=== PATIENT | female | born 1935 | race Caucasian/White ===

== ENCOUNTER 2017-10-05 10:22 | Inpatient (IN) | payer MEDICARE ==
[2017-10-05] MEDS ORDERED: SODIUM CHLORIDE 0.9% 500 ML IV STA (10:37)
[2017-10-05] MEDS ORDERED: SODIUM CHLORIDE 0.9% 1,000 ML IV STA ×2 (10:37)
[2017-10-05] MEDS ORDERED: ACETAMINOPHEN IV (For NPO) 1,000 MG in EMPTY BAG 1 BAG IVPB STA (10:39)
[2017-10-05 10:44] LABS: Glucose,Whole Blood 190 mg/dL (75-99)
--- NOTE | 2017-10-05 11:01 | ED ---
General Adult HPI - General Chief complaint: Fall Stated complaint: Altered Mental Time Seen by Provider: 10/05/17 10:26 Source: patient, RN notes reviewed, old records reviewed Mode of arrival: EMS Limitations: no limitations - History of Present Illness Initial comments: This is an 82-year-old female to the ER status post fall, found down. Patient' s poor strain history obtained from EMS. Prostatic patient was found down leg headfirst on the ground when they came to evaluate her this morning. - Related Data Home Medications Medication Instructions Recorded Confirmed Aspirin EC [Ecotrin Low Dose] 81 mg PO DAILY@0800 03/14/16 10/05/17 Levothyroxine Sodium [Synthroid] 50 mcg PO DAILY 03/14/16 10/05/17 Clobetasol Propionate [Temovate 1 applic TOPICAL BID 07/08/17 10/05/17 0.05% Cream] Docusate [Colace] 200 mg PO HS 07/08/17 10/05/17 Metoclopramide [Reglan] 20 mg PO AC-BID 07/08/17 10/05/17 PARoxetine [Paxil] 20 mg PO DAILY 07/08/17 10/05/17 Sennosides [Senna] 17.2 mg PO HS 07/08/17 10/05/17 ALPRAZolam [Xanax] 0.125 mg PO DAILY@0800 10/05/17 10/05/17 Benzocain/Benzalkonm Oral Gel 1 applic PO TID PRN 10/05/17 10/05/17 [Orajel Anesthetic Max Strength] Magnesium Hydroxide [Milk of 2,400 mg PO HS PRN 10/05/17 10/05/17 Magnesia] Ondansetron [Zofran ODT] 4 mg PO Q8HR PRN 10/05/17 10/05/17 Polyethylene Glycol 3350 [Miralax] 17 gm PO Q48H 10/05/17 10/05/17 Sennosides [Senna] 8.6 mg PO HS PRN 10/05/17 10/05/17 Allergies Allergy/AdvReac Type Severity Reaction Status Date / Time gluten Allergy Unknown Verified 10/05/17 10:47 Review of Systems ROS Statement: Those systems with pertinent positive or pertinent negative responses have been documented in the HPI. ROS Other: All systems not noted in ROS Statement are negative. Past Medical History Past Medical History: GERD/Reflux, Thyroid Disorder History of Any Multi-Drug Resistant Organisms: None Reported Past Surgical History: Joint Replacement Past Psychological History: Anxiety Smoking Status: Never smoker Past Alcohol Use History: None Reported Past Drug Use History: None Reported General Exam Limitations: no limitations General appearance: alert, in no apparent distress Head exam: Present: atraumatic, normocephalic, normal inspection Eye exam: Present: normal appearance, PERRL, EOMI. Absent: scleral icterus, conjunctival injection, periorbital swelling ENT exam: Present: normal exam, mucous membranes moist Neck exam: Present: normal inspection. Absent: tenderness, meningismus, lymphadenopathy Respiratory exam: Present: normal lung sounds bilaterally. Absent: respiratory distress, wheezes, rales, rhonchi, stridor Cardiovascular Exam: Present: normal rhythm, tachycardia, normal heart sounds. Absent: systolic murmur, diastolic murmur, rubs, gallop, clicks GI/Abdominal exam: Present: soft, normal bowel sounds. Absent: distended, tenderness, guarding, rebound, rigid Extremities exam: Present: normal inspection, full ROM, normal capillary refill. Absent: tenderness, pedal edema, joint swelling, calf tenderness Back exam: Present: normal inspection Neurological exam: Present: alert, oriented X3, CN II-XII intact Psychiatric exam: Present: normal affect, normal mood Skin exam: Present: warm, dry, intact, normal color. Absent: rash Course Vital Signs 10/05/17 10/05/17 10/05/17 10:41 10:46 11:46 Pulse Rate 113 H 99 84 Respiratory 16 15 16 Rate Blood Pressure 119/69 119/69 117/59 O2 Sat by Pulse 96 99 100 Oximetry 10/05/17 12:00 Pulse Rate 87 Respiratory 16 Rate Blood Pressure O2 Sat by Pulse 100 Oximetry - Reevaluation(s) Reevaluation #1: 10/05/17 12:27 Patient showing no significant clinical improvement Reevaluation #2: 10/05/17 14:07 Patient remains without significant mental state or mental status improvement EKG Findings - EKG Comments: EKG Findings:: EKG shows sinus tachycardia rate 103, [place] 126, QRS 72, QTc to 12 Medical Decision Making - Medical Decision Making 82 female the ER for evaluation. Patient presents ER for evaluation regarding found down. Patient still not speaking appropriately. Patient will be admitted for IV resuscitation, continued monitoring of altered mental state - Lab Data Result diagrams: 10/05/17 11:22 10/05/17 11:22 Lab Results 10/05/17 10/05/17 10/05/17 Range/Units 10:41 11:22 11:22 WBC 10.5 (3.8-10.6) k/uL RBC 2.51 L (3.80-5.40) m/uL Hgb 7.5 L (11.4-16.0) gm/dL Hct 22.4 L (34.0-46.0) % MCV 89.5 (80.0-100.0) fL MCH 30.1 (25.0-35.0) pg MCHC 33.6 (31.0-37.0) g/dL RDW 13.1 (11.5-15.5) % Plt Count 287 (150-450) k/uL Neutrophils % 91 % Lymphocytes % 4 % Monocytes % 4 % Eosinophils % 0 % Basophils % 0 % Neutrophils # 9.6 H (1.3-7.7) k/uL Lymphocytes # 0.5 L (1.0-4.8) k/uL Monocytes # 0.4 (0-1.0) k/uL Eosinophils # 0.0 (0-0.7) k/uL Basophils # 0.0 (0-0.2) k/uL PT (9.0-12.0) sec INR (<1.2) APTT (22.0-30.0) sec Sodium (137-145) mmol/L Potassium (3.5-5.1) mmol/L Chloride (98-107) mmol/L Carbon Dioxide (22-30) mmol/L Anion Gap mmol/L BUN (7-17) mg/dL Creatinine (0.52-1.04) mg/dL Est GFR (CKD-EPI)AfAm (>60 ml/min/1.73 sqM) Est GFR (CKD-EPI)NonAf (>60 ml/min/1.73 sqM) Glucose (74-99) mg/dL POC Glucose (mg/dL) 190 H (75-99) mg/dL POC Glu Recoating Machine Operator ID McDaid, Lexy Plasma Lactic Acid Darío (0.7-2.0) mmol/L Calcium (8.4-10.2) mg/dL Phosphorus (2.5-4.5) mg/dL Magnesium (1.6-2.3) mg/dL Total Bilirubin (0.2-1.3) mg/dL AST (14-36) U/L ALT (9-52) U/L Alkaline Phosphatase (38-126) U/L Total Creatine Kinase 567 H (30-135) U/L CK-MB (CK-2) 7.8 H* (0.0-2.4) ng/mL CK-MB (CK-2) Rel Index 1.4 Troponin I <0.012 (0.000-0.034) ng/mL Total Protein (6.3-8.2) g/dL Albumin (3.5-5.0) g/dL 10/05/17 10/05/17 10/05/17 Range/Units 11:22 11:22 11:22 WBC (3.8-10.6) k/uL RBC (3.80-5.40) m/uL Hgb (11.4-16.0) gm/dL Hct (34.0-46.0) % MCV (80.0-100.0) fL MCH (25.0-35.0) pg MCHC (31.0-37.0) g/dL RDW (11.5-15.5) % Plt Count (150-450) k/uL Neutrophils % % Lymphocytes % % Monocytes % % Eosinophils % % Basophils % % Neutrophils # (1.3-7.7) k/uL Lymphocytes # (1.0-4.8) k/uL Monocytes # (0-1.0) k/uL Eosinophils # (0-0.7) k/uL Basophils # (0-0.2) k/uL PT 11.0 (9.0-12.0) sec INR 1.1 (<1.2) APTT 24.8 (22.0-30.0) sec Sodium 144 (137-145) mmol/L Potassium 3.1 L (3.5-5.1) mmol/L Chloride 119 H (98-107) mmol/L Carbon Dioxide 18 L (22-30) mmol/L Anion Gap 7 mmol/L BUN 29 H (7-17) mg/dL Creatinine 0.55 (0.52-1.04) mg/dL Est GFR (CKD-EPI)AfAm >90 (>60 ml/min/1.73 sqM) Est GFR (CKD-EPI)NonAf 89 (>60 ml/min/1.73 sqM) Glucose 124 H (74-99) mg/dL POC Glucose (mg/dL) (75-99) mg/dL POC Glu Recoating Machine Operator ID Plasma Lactic Acid Darío 2.6 H* (0.7-2.0) mmol/L Calcium 6.6 L (8.4-10.2) mg/dL Phosphorus 2.6 (2.5-4.5) mg/dL Magnesium 1.4 L (1.6-2.3) mg/dL Total Bilirubin 0.2 (0.2-1.3) mg/dL AST 38 H (14-36) U/L ALT 43 (9-52) U/L Alkaline Phosphatase 42 (38-126) U/L Total Creatine Kinase (30-135) U/L CK-MB (CK-2) (0.0-2.4) ng/mL CK-MB (CK-2) Rel Index Troponin I (0.000-0.034) ng/mL Total Protein 4.3 L (6.3-8.2) g/dL Albumin 2.0 L (3.5-5.0) g/dL - Radiology Data Radiology results: report reviewed (CT brain C-spine patient was negative chest x-ray x-ray pelvis negative), image reviewed Disposition Clinical Impression: Fall, Weakness, Rhabdomyolysis, Altered mental state, Anemia, Dehydration Disposition: ADMITTED IP TO THIS HOSP Condition: Fair
[2017-10-05 11:40] LABS: Basophils % (A) 0 %; Eosinophils % (A) 0 %; HCT 22.4 % (34.0-46.0); HGB 7.5 gm/dL (11.4-16.0); Lymphocytes # (A) 0.5 k/uL (1.0-4.8); Lymphocytes % (A) 4 %; MCH 30.1 pg (25.0-35.0); MCHC 33.6 g/dL (31.0-37.0); MCV 89.5 fL (80.0-100.0); Mean Platelet Volume 8.8; Monocytes # (A) 0.4 k/uL (0-1.0); Monocytes % (A) 4 %; Neutrophils # (A) 9.6 k/uL (1.3-7.7); Neutrophils % (A) 91 %; Platelet Count 287 k/uL (150-450); RBC 2.51 m/uL (3.80-5.40); RDW 13.1 % (11.5-15.5); WBC 10.5 k/uL (3.8-10.6)
--- NOTE | 2017-10-05 11:43 | CT ---
EXAMINATION TYPE: CT brain phani freedman con DATE OF EXAM: 10/05/2017 COMPARISON: NONE HISTORY: 82-year-old female found on floor. Fall. Pain. CT DLP: 1016.3 mGycm Automated exposure control for dose reduction was used. Technique: Examination of the head was done in axial plane without intravenous contrast. Coronal and sagittal reconstructions performed. CT of the cervical spine was obtained in axial plane without intravenous injection of contrast mater ial. Coronal and sagittal reformatted images were obtained from the axial views for evaluation of f ractures, spinal alignment and canal. FINDINGS: Head: Some mild calvarial streak artifacts along the frontal convexities. Otherwise, there is no evidence o f acute intracranial hemorrhage, acute ischemic changes, mass, mass-effect, or extra-axial fluid col lection. There is no effacement of cerebral sulci or basal subarachnoid cisterns. There is no hydro cephalus. There is no midline shift. Swan-white matter distinction is preserved. Moderate generalized supratentorial volume loss. Patchy periventricular white matter hypodensities ramsay ggest changes of chronic small vessel ischemic disease. Benign basal ganglial calcifications. Paranasal sinuses and mastoid air cells well pneumatized. No calvarial fracture. Cervical spine: No craniocervical junction of the midbody, predental space widening, or prevertebral soft tissue swel ling. Normal alignment of the cervical spine. No acute fracture identified. Moderate to advanced disposition to degenerative change particularly from C4 through C7 levels. Disc osteophyte complexes mildly narrow the spinal canal suggests that C5-C6 and C6-C7. Hypertrophic facet and uncovertebral joint degenerative change with variable mild neuroforaminal narr owing in the mid to lower cervical spine. Sagittal and coronal reformatted images confirm above findings. COMBINED IMPRESSION: 1. No acute intracranial abnormality seen. Moderate atrophy and mild changes of chronic small vessel ischemic disease. 2. Moderate cervical spondylosis. No acute fracture or malalignment.
[2017-10-05 11:44] LABS: INR 1.1 (<1.2); Partial Thromboplastin Time 24.8 sec (22.0-30.0)
--- NOTE | 2017-10-05 11:46 | CT ---
EXAMINATION TYPE: CT facial bones wo con DATE OF EXAM: 10/05/2017 COMPARISON: NONE HISTORY: Patient poor historian. Patient found on floor. Fall. CT DLP: 520.3 mGycm Automated exposure control for dose reduction was used. TECHNIQUE: CT scan of the sinuses is performed without contrast, axial images are obtained, coronal r eformatted images are also reviewed. FINDINGS: The paranasal sinuses including the frontal, ethmoid, sphenoid, and maxillary sinuses bila terally are well-aerated with minimal mucosal thickening involving the maxillary sinuses.. The ostio meatal complex is patent bilaterally on the coronal images. Visualized portion of mastoid air cells show no abnormal opacification. The globes are intact bilate rally. There is a nasal septal deviation. Osseous structures intact. IMPRESSION: 1. No acute fracture.
[2017-10-05 11:47] LABS: ALT 43 U/L (9-52); AST 38 U/L (14-36); Alkaline Phosphatase 42 U/L (38-126); Anion Gap 7 mmol/L; Blood Urea Nitrogen 29 mg/dL (7-17); Calcium 6.6 mg/dL (8.4-10.2); Carbon Dioxide 18 mmol/L (22-30); Chloride 119 mmol/L (98-107); Glucose 124 mg/dL (74-99); Magnesium 1.4 mg/dL (1.6-2.3); Phosphorus 2.6 mg/dL (2.5-4.5); Potassium 3.1 mmol/L (3.5-5.1); Sodium 144 mmol/L (137-145); Total Bilirubin 0.2 mg/dL (0.2-1.3); Total Protein 4.3 g/dL (6.3-8.2)
[2017-10-05 11:57] LABS: Creatine Kinase 567 U/L (30-135)
[2017-10-05 12:10] LABS: Troponin I <0.012 ng/mL (0.000-0.034)
[2017-10-05 12:14] LABS: Creatine Kinase MB 7.8 ng/mL (0.0-2.4)
[2017-10-05 13:15] LABS: Appearance,Urine Clear (Clear); Bilirubin,Urine Negative (Negative); Blood,Urine Negative (Negative); Color,Urine Yellow; Glucose,Urine (UA) Negative (Negative); Ketones,Urine Negative (Negative); Leukocyte Esterase,Urine Negative (Negative); Nitrite,Urine Negative (Negative); PH, Urine 5.5 (5.0-8.0); Protein,Urine Trace (Negative); Specific Gravity,Urine 1.024 (1.001-1.035)
--- NOTE | 2017-10-05 14:37 | XR ---
EXAMINATION TYPE: XR chest 2V DATE OF EXAM: 10/05/2017 COMPARISON: NONE TECHNIQUE: PA and lateral views submitted. HISTORY: Weakness FINDINGS: The lungs are clear and there is no pneumothorax, pleural effusion, or focal pneumonia. Diffuse ost eopenia. Mild arthropathy of the AC joint. Atherosclerotic change aorta. IMPRESSION: 1. No acute process.
--- NOTE | 2017-10-05 14:38 | XR ---
EXAMINATION TYPE: XR knee complete bilateral DATE OF EXAM: 10/05/2017 COMPARISON: NONE HISTORY: Pain TECHNIQUE: Four views are submitted bilaterally. FINDINGS: Mild narrowing of the medial compartment of the knee joint bilaterally. No erosive changes. Mild diff use osteopenia. Osseous structures are intact. No acute fracture seen. IMPRESSION: 1. No acute fracture or dislocation.
--- NOTE | 2017-10-05 14:40 | XR ---
EXAMINATION TYPE: XR pelvis AP view DATE OF EXAM: 10/05/2017 COMPARISON: NONE HISTORY: Pain The osseous structures are intact and the joint spaces are preserved. No acute fracture is seen. Vi sualized bowel gas pattern is nonspecific. Postsurgical change right hip. Arthropathy of the left hi p. Degenerative change lower lumbar spine. IMPRESSION: 1. No acute fracture.
[2017-10-05] MEDS ORDERED: ONDANSETRON 4 MG/2 ML VIAL IVP PRN (15:12)
[2017-10-05] MEDS ORDERED: NALOXONE 0.4 MG/ML 1 ML VIAL IV PRN (15:12)
[2017-10-05] MEDS ORDERED: ONDANSETRON ODT 4 MG TAB PO PRN (15:16)
[2017-10-05] MEDS ORDERED: MAGNESIUM HYDROXIDE 2,400 MG/10 ML CUP PO PRN (15:16)
--- NOTE | 2017-10-05 15:23 | P.HPIM ---
History of Present Illness H&P Date: 10/05/17 Chief Complaint: Found down 82-year-old female who presented to the emergency department because she was found down by her independent living staff. No further history was provided. It is unclear how long the patient was down but it seemed like she fell. I tried to reach her next of kin contact but was unable to. Patient is currently not able to give any history, she is confused, she does not know where she is. She is just asking for water. Review of Systems Unobtainable Past Medical History Past Medical History: GERD/Reflux, Thyroid Disorder History of Any Multi-Drug Resistant Organisms: None Reported Past Surgical History: Joint Replacement Past Psychological History: Anxiety Smoking Status: Never smoker Past Alcohol Use History: None Reported Past Drug Use History: None Reported Medications and Allergies Home Medications Medication Instructions Recorded Confirmed Type Aspirin EC [Ecotrin Low Dose] 81 mg PO DAILY@0800 03/14/16 10/05/17 History Levothyroxine Sodium [Synthroid] 50 mcg PO DAILY 03/14/16 10/05/17 History Clobetasol Propionate [Temovate 1 applic TOPICAL BID 07/08/17 10/05/17 History 0.05% Cream] Docusate [Colace] 200 mg PO HS 07/08/17 10/05/17 History Metoclopramide [Reglan] 20 mg PO AC-BID 07/08/17 10/05/17 History PARoxetine [Paxil] 20 mg PO DAILY 07/08/17 10/05/17 History Sennosides [Senna] 17.2 mg PO HS 07/08/17 10/05/17 History ALPRAZolam [Xanax] 0.125 mg PO DAILY@0800 10/05/17 10/05/17 History Benzocain/Benzalkonm Oral Gel 1 applic PO TID PRN 10/05/17 10/05/17 History [Orajel Anesthetic Max Strength] Magnesium Hydroxide [Milk of 2,400 mg PO HS PRN 10/05/17 10/05/17 History Magnesia] Ondansetron [Zofran ODT] 4 mg PO Q8HR PRN 10/05/17 10/05/17 History Polyethylene Glycol 3350 [Miralax] 17 gm PO Q48H 10/05/17 10/05/17 History Sennosides [Senna] 8.6 mg PO HS PRN 10/05/17 10/05/17 History Allergies Allergy/AdvReac Type Severity Reaction Status Date / Time gluten Allergy Unknown Verified 10/05/17 10:47 Physical Exam Vitals: Vital Signs Pulse Resp BP Pulse Ox 10/05/17 14:35 90 118/63 100 10/05/17 13:35 84 110/60 100 10/05/17 13:05 94 126/65 100 10/05/17 12:35 84 117/59 100 10/05/17 12:00 87 16 100 10/05/17 11:46 84 16 117/59 100 10/05/17 10:46 99 15 119/69 99 10/05/17 10:41 113 H 16 119/69 96 Intake and Output 10/05/17 10/05/17 10/05/17 06:59 14:59 22:59 Other: Weight 56.699 kg Constitutional: No acute distress Eyes:Anicteric sclerae, moist conjunctiva, no lid-lag, PERRLA, ENMT: Very dry mucous membranes, oropharynx clear, no erythema, exudates Neck: Supple, FROM, no masses, or JVD, No carotid bruits, No thyromegaly Lungs: Clear to auscultation, Clear to percussion, Normal respiratory effort, no accessory muscle use Cardiovascular: Heart regular in rate and rhythm, No murmurs, gallops, or rubs, No peripheral edema Abdominal: Soft, Nontender, no guarding, rebound or rigidity, Normoactive bowel sounds, No hepatomegaly, No splenomegaly, No palpable mass Skin: Multiple bruises all over the skin especially on the face, the knees. Normal temperature, tone, texture, turgor, no induration, No subcutaneous nodules, No rash, lesions, No ulcers Extremities: No digital cyanosis, No clubbing, Pedal pulses intact and symmetrical, Radial pulses intact and symmetrical, No calf tenderness Psychiatric: Alert and oriented to self only Neuro: Moving all extremities, alert but disoriented. Results CBC & Chem 7: 10/05/17 11:22 10/05/17 11:22 Labs: Abnormal Lab Results - Last 24 Hours (Table) 10/05/17 10/05/17 10/05/17 Range/Units 10:41 11:22 11:22 RBC 2.51 L (3.80-5.40) m/uL Hgb 7.5 L (11.4-16.0) gm/dL Hct 22.4 L (34.0-46.0) % Neutrophils # 9.6 H (1.3-7.7) k/uL Lymphocytes # 0.5 L (1.0-4.8) k/uL Potassium (3.5-5.1) mmol/L Chloride (98-107) mmol/L Carbon Dioxide (22-30) mmol/L BUN (7-17) mg/dL Glucose (74-99) mg/dL POC Glucose (mg/dL) 190 H (75-99) mg/dL Plasma Lactic Acid Darío (0.7-2.0) mmol/L Calcium (8.4-10.2) mg/dL Magnesium (1.6-2.3) mg/dL AST (14-36) U/L Total Creatine Kinase 567 H (30-135) U/L CK-MB (CK-2) 7.8 H* (0.0-2.4) ng/mL Total Protein (6.3-8.2) g/dL Albumin (3.5-5.0) g/dL Urine Protein (Negative) 10/05/17 10/05/17 10/05/17 Range/Units 11:22 11:22 13:10 RBC (3.80-5.40) m/uL Hgb (11.4-16.0) gm/dL Hct (34.0-46.0) % Neutrophils # (1.3-7.7) k/uL Lymphocytes # (1.0-4.8) k/uL Potassium 3.1 L (3.5-5.1) mmol/L Chloride 119 H (98-107) mmol/L Carbon Dioxide 18 L (22-30) mmol/L BUN 29 H (7-17) mg/dL Glucose 124 H (74-99) mg/dL POC Glucose (mg/dL) (75-99) mg/dL Plasma Lactic Acid Darío 2.6 H* (0.7-2.0) mmol/L Calcium 6.6 L (8.4-10.2) mg/dL Magnesium 1.4 L (1.6-2.3) mg/dL AST 38 H (14-36) U/L Total Creatine Kinase (30-135) U/L CK-MB (CK-2) (0.0-2.4) ng/mL Total Protein 4.3 L (6.3-8.2) g/dL Albumin 2.0 L (3.5-5.0) g/dL Urine Protein Trace H (Negative) Assessment and Plan Plan: #1 Change in mental status/Acute encephalopathy/Fall: Unclear etiology Patient is definitely dehydrated, will treat with IV fluids. #2 New onset anemia: Unclear etiology, patient could be bleeding somewhere Recheck hemoglobin at 6 PM Monitor for any bleeding Transfuse packed red blood cells if necessary #3 Hypokalemia: Replace and follow in a.m. #4 Lactic acidosis: Chest x-ray and UA are reviewed, no evidence of infection Repeat lactic acid No indication for antibiotics at this point #5 Hypothyroidism/chronic constipation/anxiety: All stable Resume meds.
[2017-10-05] MEDS ORDERED: POTASSIUM CHLORIDE 10 MEQ in SODIUM CHLORIDE 0.9% 100 ML IVPB STA (15:26)
[2017-10-05] MEDS: SODIUM CHLORIDE 0.9% 1,000 ML IV SCH (15:53)
[2017-10-05] MEDS: ACETAMINOPHEN TAB 325 MG TAB PO PRN (16:14)
[2017-10-05] MEDS: MAGNESIUM SULFATE-D5W PMX 1 GM in DEXTROSE/WATER 1 100ML.BAG IVPB SCH ×2 (18:04→19:35)
[2017-10-05] MEDS: METOCLOPRAMIDE 10 MG TAB PO SCH (18:04)
[2017-10-05 18:49] LABS: Basophils % (A) 0 %; Eosinophils # (A) 0.1 k/uL (0-0.7); Eosinophils % (A) 1 %; HCT 24.3 % (34.0-46.0); HGB 8.3 gm/dL (11.4-16.0); Lymphocytes # (A) 1.5 k/uL (1.0-4.8); Lymphocytes % (A) 13 %; MCH 30.9 pg (25.0-35.0); MCHC 34.4 g/dL (31.0-37.0); MCV 89.9 fL (80.0-100.0); Mean Platelet Volume 8.2; Monocytes # (A) 0.7 k/uL (0-1.0); Monocytes % (A) 6 %; Neutrophils # (A) 8.9 k/uL (1.3-7.7); Neutrophils % (A) 78 %; Platelet Count 322 k/uL (150-450); RDW 13.2 % (11.5-15.5); WBC 11.3 k/uL (3.8-10.6)
[2017-10-06] MEDS: SODIUM CHLORIDE 0.9% 1,000 ML IV SCH ×3 (03:15→22:38)
[2017-10-06 07:30] LABS: Basophils % (A) 1 %; Eosinophils # (A) 0.1 k/uL (0-0.7); Eosinophils % (A) 1 %; HCT 22.8 % (34.0-46.0); HGB 7.8 gm/dL (11.4-16.0); Lymphocytes # (A) 1.5 k/uL (1.0-4.8); Lymphocytes % (A) 22 %; MCH 30.7 pg (25.0-35.0); MCHC 34.4 g/dL (31.0-37.0); MCV 89.2 fL (80.0-100.0); Mean Platelet Volume 8.1; Monocytes # (A) 0.4 k/uL (0-1.0); Monocytes % (A) 6 %; Neutrophils # (A) 4.8 k/uL (1.3-7.7); Neutrophils % (A) 69 %; Platelet Count 287 k/uL (150-450); RBC 2.55 m/uL (3.80-5.40); RDW 13.1 % (11.5-15.5)
[2017-10-06 07:48] LABS: ALT 82 U/L (9-52); AST 81 U/L (14-36); Albumin 2.4 g/dL (3.5-5.0); Alkaline Phosphatase 49 U/L (38-126); Anion Gap 6 mmol/L; Blood Urea Nitrogen 24 mg/dL (7-17); Calcium 8.5 mg/dL (8.4-10.2); Carbon Dioxide 25 mmol/L (22-30); Chloride 112 mmol/L (98-107); Glucose 99 mg/dL (74-99); Magnesium 2.4 mg/dL (1.6-2.3); Phosphorus 2.6 mg/dL (2.5-4.5); Sodium 143 mmol/L (137-145); Total Bilirubin 0.3 mg/dL (0.2-1.3); Total Protein 4.8 g/dL (6.3-8.2)
[2017-10-06 07:49] LABS: Potassium 4.2 mmol/L (3.5-5.1)
[2017-10-06] MEDS: PARoxetine 20 MG TAB PO SCH (08:47)
[2017-10-06] MEDS: ALPRAZolam 0.25 MG TAB PO SCH (08:48)
[2017-10-06] MEDS: METOCLOPRAMIDE 10 MG TAB PO SCH ×2 (08:48→16:26)
[2017-10-06] MEDS: LEVOTHYROXINE 50 MCG TAB PO SCH (08:48)
[2017-10-06] MEDS: ASPIRIN 81 MG PO SCH (08:48)
--- NOTE | 2017-10-06 12:14 | P.PN ---
Subjective Progress Note Date: 10/06/17 Principal diagnosis: Fall Patient is much better today, she is able to verbalize her complaints. She was having abdominal pain in the lower part of his abdomen and some nausea, no vomiting. No shortness of breath or chest pain. Objective - Vital Signs Vital signs: Vital Signs Temp 98.2 F 10/06/17 07:00 Pulse 80 10/06/17 07:00 Resp 12 10/06/17 07:00 BP 99/54 10/06/17 07:00 Pulse Ox 96 10/06/17 07:00 Intake & Output 10/05/17 10/06/17 10/06/17 18:59 06:59 18:59 Intake Total 1800 Balance 1800 Weight 56.699 kg Intake: Intake, IV Titration 1800 Amount Magnesium Sulfate-D5w Pmx 200 1 gm In Dextrose/Water 1 100ml.bag @ 100 mls/hr IVPB Q1H [facility]II Rx#: [id number] Sodium Chloride 0.9% 1, 1600 000 ml @ 100 mls/hr IV . Q10H [facility]II Rx#:[id number] Other: Voiding Method Diaper Diaper Diaper # Voids 2 # Bowel Movements 1 - Exam Constitutional: No acute distress Eyes:Anicteric sclerae, moist conjunctiva, no lid-lag, PERRLA, ENMT: Very dry mucous membranes, oropharynx clear, no erythema, exudates Neck: Supple, FROM, no masses, or JVD, No carotid bruits, No thyromegaly Lungs: Clear to auscultation, Clear to percussion, Normal respiratory effort, no accessory muscle use Cardiovascular: Heart regular in rate and rhythm, No murmurs, gallops, or rubs, No peripheral edema Abdominal: Soft, Nontender, no guarding, rebound or rigidity, Normoactive bowel sounds, No hepatomegaly, No splenomegaly, No palpable mass Skin: Multiple bruises all over the skin especially on the face, the knees. Normal temperature, tone, texture, turgor, no induration, No subcutaneous nodules, No rash, lesions, No ulcers Extremities: No digital cyanosis, No clubbing, Pedal pulses intact and symmetrical, Radial pulses intact and symmetrical, No calf tenderness Neuro: Alert and oriented X3 - Labs CBC & Chem 7: 10/06/17 06:43 10/06/17 06:43 Labs: Abnormal Lab Results - Last 24 Hours (Table) 10/05/17 10/05/17 10/05/17 Range/Units 11:22 11:22 11:22 WBC (3.8-10.6) k/uL RBC 2.51 L (3.80-5.40) m/uL Hgb 7.5 L (11.4-16.0) gm/dL Hct 22.4 L (34.0-46.0) % Neutrophils # 9.6 H (1.3-7.7) k/uL Lymphocytes # 0.5 L (1.0-4.8) k/uL Potassium 3.1 L (3.5-5.1) mmol/L Chloride 119 H (98-107) mmol/L Carbon Dioxide 18 L (22-30) mmol/L BUN 29 H (7-17) mg/dL Glucose 124 H (74-99) mg/dL Plasma Lactic Acid Darío (0.7-2.0) mmol/L Calcium 6.6 L (8.4-10.2) mg/dL Magnesium 1.4 L (1.6-2.3) mg/dL AST 38 H (14-36) U/L ALT (9-52) U/L Total Creatine Kinase 567 H (30-135) U/L CK-MB (CK-2) 7.8 H* (0.0-2.4) ng/mL Total Protein 4.3 L (6.3-8.2) g/dL Albumin 2.0 L (3.5-5.0) g/dL Urine Protein (Negative) 10/05/17 10/05/17 10/05/17 Range/Units 11:22 13:10 18:33 WBC 11.3 H (3.8-10.6) k/uL RBC 2.70 L (3.80-5.40) m/uL Hgb 8.3 L (11.4-16.0) gm/dL Hct 24.3 L (34.0-46.0) % Neutrophils # 8.9 H (1.3-7.7) k/uL Lymphocytes # (1.0-4.8) k/uL Potassium (3.5-5.1) mmol/L Chloride (98-107) mmol/L Carbon Dioxide (22-30) mmol/L BUN (7-17) mg/dL Glucose (74-99) mg/dL Plasma Lactic Acid Darío 2.6 H* (0.7-2.0) mmol/L Calcium (8.4-10.2) mg/dL Magnesium (1.6-2.3) mg/dL AST (14-36) U/L ALT (9-52) U/L Total Creatine Kinase (30-135) U/L CK-MB (CK-2) (0.0-2.4) ng/mL Total Protein (6.3-8.2) g/dL Albumin (3.5-5.0) g/dL Urine Protein Trace H (Negative) 10/06/17 10/06/17 Range/Units 06:43 06:43 WBC (3.8-10.6) k/uL RBC 2.55 L (3.80-5.40) m/uL Hgb 7.8 L (11.4-16.0) gm/dL Hct 22.8 L (34.0-46.0) % Neutrophils # (1.3-7.7) k/uL Lymphocytes # (1.0-4.8) k/uL Potassium (3.5-5.1) mmol/L Chloride 112 H (98-107) mmol/L Carbon Dioxide (22-30) mmol/L BUN 24 H (7-17) mg/dL Glucose (74-99) mg/dL Plasma Lactic Acid Darío (0.7-2.0) mmol/L Calcium (8.4-10.2) mg/dL Magnesium 2.4 H (1.6-2.3) mg/dL AST 81 H (14-36) U/L ALT 82 H (9-52) U/L Total Creatine Kinase (30-135) U/L CK-MB (CK-2) (0.0-2.4) ng/mL Total Protein 4.8 L (6.3-8.2) g/dL Albumin 2.4 L (3.5-5.0) g/dL Urine Protein (Negative) Microbiology - Last 24 Hours (Table) 10/05/17 13:10 Urine Culture - Preliminary Urine,Clean Catch Assessment and Plan Plan: #1 Change in mental status/Acute encephalopathy/Fall: Unclear etiology Continue with IV fluids. #2 Abdominal pain: Will order stat CT abd and pelvis. #3 New onset anemia: Unclear etiology, no obvious bleeding, had brown stools yesterday Hgb stable, no indication for transfusion at this point Send iron profile, ferritin, B12 and folic acid, retic count, LDH and haptoglobin. #4 Hypokalemia: Replace and follow in a.m. #5 Lactic acidosis: Chest x-ray and UA are reviewed, no evidence of infection Resolved No indication for antibiotics at this point #6 Hypothyroidism/chronic constipation/anxiety: All stable Resume meds.
--- NOTE | 2017-10-06 13:58 | CT ---
EXAMINATION TYPE: CT abdomen pelvis wo con DATE OF EXAM: 10/06/2017 COMPARISON: 05/25/2016 HISTORY: Severe abdominal pain CT DLP: 902 mGycm Automated exposure control for dose reduction was used. TECHNIQUE: Helical acquisition of images was performed from the lung bases through the pelvis. FINDINGS: LUNG BASES: There are trace pleural effusions and bibasilar subsegmental atelectasis. LIVER/GB: Inflammatory fat stranding is seen surrounding the distal aspect of the gallbladder and gas tric pylorus. No overt common bile duct enlargement (approximately 7.7 mm that is within normal limit s for the patient's age) or pericholecystic fluid is seen. Gallstone is noted within the gallbladder. Unenhanced is unremarkable in morphology. PANCREAS: No significant abnormality is seen.No ductal dilatation. SPLEEN: No significant abnormality is seen. No splenomegaly. ADRENALS: No significant abnormality is seen. No nodularity. KIDNEYS: No significant abnormality is seen. FREE AIR: No free air is visualized ADENOPATHY: No greater than 1 cm short axis with nodes are seen within the abdomen or pelvis. REPRODUCTIVE ORGANS: No significant abnormality is seen URINARY BLADDER: Urinary bladder is distended and contains high density posterior laterally to the r ight highly suspicious for hemorrhage or less likely hyperdense tumor. As seen on series 4 image 126. OSSEOUS STRUCTURES: Right hip arthroplasty is present. There is mild generalized osseous demineraliz ation. Mild multilevel degenerative disc disease of the thoracolumbar and lumbosacral spine as visual ized are present. BOWEL: Focal thickening of the gastric antrum and descending duodenum are seen with mild surrounding inflammatory fat stranding. Distal rectal fecal ball there is high density on recent contrast are ra diopaque material distends the rectum and measures up to 6.5 cm. There is surrounding thickening of t he rectum and is mild and may relate to incomplete distention distal to this. Minimal sigmoid diverti culosis without evidence of diverticulitis is seen. OTHER: There is very low density in the vasculature such as the ascending thoracic aorta, which may c orrelate with anemia clinically. Multiple calcified lymph nodes are noted within the right mid abdome n on series 4 image 65 and 73 as well as 76. Moderate calcific atheromatous changes are seen of the a bdominal aorta and its branches. IMPRESSION: 1. FOCAL HIGH DENSITY WITHIN THE RIGHT POSTERIOR LATERAL URINARY BLADDER WALL HIGHLY CONCERNING FOR H EMORRHAGE, WHICH MAY RELATE TO AN UNDERLYING HEMORRHAGIC EN PLAQUE NEOPLASM, CYSTITIS OR LESS LIKELY UPPER URINARY TRACT NEOPLASM. 2. RIGHT UPPER QUADRANT MESENTERIC THICKENING CENTERED AROUND THE THICKENED GASTRIC PYLORUS/DUODENUM AND GALLBLADDER NECK. NO ENLARGEMENT OF THE COMMON BILE DUCT IS SEEN ALTHOUGH THERE IS CHOLECYSTITIS. CORRELATE WITH SERUM BILIRUBIN. FINDINGS COULD REPRESENT GASTRITIS AND DUODENITIS OR EARLY CHOLECYST ITIS. 3. DIFFUSE LOW-DENSITY WITHIN THE VASCULATURE MAY REPRESENT ANEMIA.
[2017-10-06] MEDS: PIPERACILLIN-TAZOBACTAM 3.375 GM in DEXTROSE/WATER 1 50ML.BAG IVPB SCH ×2 (16:23→22:40)
[2017-10-07] MEDS: ACETAMINOPHEN TAB 325 MG TAB PO PRN (04:40)
[2017-10-07] MEDS: LEVOTHYROXINE 50 MCG TAB PO SCH (06:35)
--- NOTE | 2017-10-07 10:46 | P.GSCN ---
History of Present Illness Consult date: 10/06/17 Reason for Consult: Abdominal pain History of present illness: This 82-year-old female who is admitted to the medical service. Patient is a poor historian. She had some complaints of abdominal pain. Her CAT scan showed evidence of possible gastritis or duodenitis or mild cholecystitis. Patient states she is currently pain-free. Past Medical History Past Medical History: GERD/Reflux, Thyroid Disorder History of Any Multi-Drug Resistant Organisms: None Reported Past Surgical History: Joint Replacement Past Psychological History: Anxiety Smoking Status: Never smoker Past Alcohol Use History: None Reported Past Drug Use History: None Reported Medications and Allergies Home Medications Medication Instructions Recorded Confirmed Type Aspirin EC [Ecotrin Low Dose] 81 mg PO DAILY@0800 03/14/16 10/05/17 History Levothyroxine Sodium [Synthroid] 50 mcg PO DAILY 03/14/16 10/05/17 History Clobetasol Propionate [Temovate 1 applic TOPICAL BID 07/08/17 10/05/17 History 0.05% Cream] Docusate [Colace] 200 mg PO HS 07/08/17 10/05/17 History Metoclopramide [Reglan] 20 mg PO AC-BID 07/08/17 10/05/17 History PARoxetine [Paxil] 20 mg PO DAILY 07/08/17 10/05/17 History Sennosides [Senna] 17.2 mg PO HS 07/08/17 10/05/17 History ALPRAZolam [Xanax] 0.125 mg PO DAILY@0800 10/05/17 10/05/17 History Benzocain/Benzalkonm Oral Gel 1 applic PO TID PRN 10/05/17 10/05/17 History [Orajel Anesthetic Max Strength] Magnesium Hydroxide [Milk of 2,400 mg PO HS PRN 10/05/17 10/05/17 History Magnesia] Ondansetron [Zofran ODT] 4 mg PO Q8HR PRN 10/05/17 10/05/17 History Polyethylene Glycol 3350 [Miralax] 17 gm PO Q48H 10/05/17 10/05/17 History Sennosides [Senna] 8.6 mg PO HS PRN 10/05/17 10/05/17 History Allergies Allergy/AdvReac Type Severity Reaction Status Date / Time gluten Allergy Unknown Verified 10/05/17 10:47 Surgical - Exam Vital Signs Pulse Resp BP Pulse Ox 113 H 16 119/69 96 10/05/17 10:41 10/05/17 10:41 10/05/17 10:41 10/05/17 10:41 - General no distress, cachectic - Eyes PERRL - ENT normal pinna - Neck no masses - Respiratory normal expansion - Cardiovascular Rhythm: regular - Abdomen Mild lower quadrant tenderness. There is no rebound or guarding. Abdomen: soft Results - Labs 10/06/17 06:43 10/06/17 06:43 Microbiology - Last 24 Hours (Table) 10/05/17 13:10 Urine Culture - Final Urine,Clean Catch Assessment and Plan Assessment: Questional gastritis/chronic cholecystitis. Patient will be observed. If she has any significant pain we will consider ultrasound of the gallbladder. And possible EGD. We will follow with you.
--- NOTE | 2017-10-07 10:47 | P.PN ---
Progress Note - Text Progress Note Date: 10/07/17 The patient resting comfortably in her bed. She denies any significant abdominal pain. She is pleasantly confused. On exam her vital signs appear stable. Her abdomen soft. There is some minimal tenderness in the epigastric area. There is also some mild tenderness in the pelvic area. There is no rebound or guarding. Patient had some mild elevation in her LFTs. Patient will undergo Brush the gallbladder today.
--- NOTE | 2017-10-07 11:09 | P.GSCN ---
History of Present Illness Consult date: 10/07/17 Reason for Consult: Bladder Mass Requesting physician: Patrice Kruse History of present illness: The patient is an 82-year-old woman who was found at home, presumably having fallen. She was subsequently admitted. She is confused but reports abdominal pain. A computed tomography scan of the abdomen and pelvis has shown a bladder irregularity. I'm consulted for this reason. Because of her confusion, she is unable to provide any urologic history nor can she the stay whether she has ever seen hematuria in the past. According to the nursing staff, she is incontinent of urine and the urine is clear. Review of Systems - Gastrointestinal Reports abdominal pain - Genitourinary Genitourinary: Denies hematuria - Neurological Reports confusion Past Medical History Past Medical History: GERD/Reflux, Thyroid Disorder History of Any Multi-Drug Resistant Organisms: None Reported Past Surgical History: Joint Replacement Past Psychological History: Anxiety Smoking Status: Never smoker Past Alcohol Use History: None Reported Past Drug Use History: None Reported Medications and Allergies Home Medications Medication Instructions Recorded Confirmed Type Aspirin EC [Ecotrin Low Dose] 81 mg PO DAILY@0800 03/14/16 10/05/17 History Levothyroxine Sodium [Synthroid] 50 mcg PO DAILY 03/14/16 10/05/17 History Clobetasol Propionate [Temovate 1 applic TOPICAL BID 07/08/17 10/05/17 History 0.05% Cream] Docusate [Colace] 200 mg PO HS 07/08/17 10/05/17 History Metoclopramide [Reglan] 20 mg PO AC-BID 07/08/17 10/05/17 History PARoxetine [Paxil] 20 mg PO DAILY 07/08/17 10/05/17 History Sennosides [Senna] 17.2 mg PO HS 07/08/17 10/05/17 History ALPRAZolam [Xanax] 0.125 mg PO DAILY@0800 10/05/17 10/05/17 History Benzocain/Benzalkonm Oral Gel 1 applic PO TID PRN 10/05/17 10/05/17 History [Orajel Anesthetic Max Strength] Magnesium Hydroxide [Milk of 2,400 mg PO HS PRN 10/05/17 10/05/17 History Magnesia] Ondansetron [Zofran ODT] 4 mg PO Q8HR PRN 10/05/17 10/05/17 History Polyethylene Glycol 3350 [Miralax] 17 gm PO Q48H 10/05/17 10/05/17 History Sennosides [Senna] 8.6 mg PO HS PRN 10/05/17 10/05/17 History Allergies Allergy/AdvReac Type Severity Reaction Status Date / Time gluten Allergy Unknown Verified 10/05/17 10:47 Surgical - Exam Vital Signs Pulse Resp BP Pulse Ox 113 H 16 119/69 96 10/05/17 10:41 10/05/17 10:41 10/05/17 10:41 10/05/17 10:41 - General well developed, well nourished, no distress - Respiratory normal respiratory effort - Abdomen Abdomen: soft, tender (Mild lower abdominal tenderness), no masses, no guarding , no rigid, no rebound, no distended Results - Labs 10/06/17 06:43 10/06/17 06:43 Microbiology - Last 24 Hours (Table) 10/05/17 13:10 Urine Culture - Final Urine,Clean Catch - Imaging CT scan - pelvis: report reviewed, image reviewed Assessment and Plan (1) Abnormal findings on examination of genitourinary organs Current Visit: Yes Status: Acute Priority: High Code(s): R89.9 - UNSP ABNORMAL FINDING IN SPECIMENS FROM OTH ORG/TISS SNOMED Code(s): 381155921 Plan: The patient is an 82-year-old white female confusion. She reports abdominal pain. A computed tomography scan shows increased echogenicity along the right posterolateral bladder wall. The bladder is relatively full, and I suspect this is to be related perhaps due to incomplete bladder emptying. It would be my recommendation that cystoscopy be performed to rule out intravesical pathology. I would prefer to do this as an outpatient, though this is somewhat dependent on her social situation.
[2017-10-07] MEDS: SODIUM CHLORIDE 0.9% 1,000 ML IV SCH ×2 (11:40→19:19)
[2017-10-07] MEDS: PIPERACILLIN-TAZOBACTAM 3.375 GM in DEXTROSE/WATER 1 50ML.BAG IVPB SCH (11:41)
[2017-10-07] MEDS: METOCLOPRAMIDE 10 MG TAB PO SCH ×2 (12:17→19:18)
[2017-10-07] MEDS: ASPIRIN 81 MG PO SCH (12:17)
[2017-10-07] MEDS: PARoxetine 20 MG TAB PO SCH (12:17)
[2017-10-07] MEDS: ALPRAZolam 0.25 MG TAB PO SCH (12:21)
--- NOTE | 2017-10-07 13:41 | US ---
EXAMINATION TYPE: US gallbladder DATE OF EXAM: 10/07/2017 COMPARISON: CT 10/06/2017 CLINICAL HISTORY: Cholecystitis. Difficult and limited exam due to overlying bowel gas EXAM MEASUREMENTS: Liver Length: 10.3 cm Gallbladder Wall: 0.2 cm CBD: 0.6 cm Right Kidney: 9.8 x 4.6 x 4.5 cm Pancreas: Tail obscured by overlying bowel gas, visualized portions show no abnormality Liver: wnl as visualized, limited visualization due to overlying bowel gas Gallbladder: Echogenic foci visualized in neck measuring 1.2 cm Evidence for sonographic Lou's sign: No CBD: wnl Right Kidney: No hydronephrosis or masses seen Limited views of the pancreas are unremarkable. The liver is normal in size without biliary dilatation. There is a prominent 1.2 cm gallstone in the neck of the gallbladder. Gallbladder wall measures 2 mm. The distal common hepatic duct measures 6 mm. There is no sonographic Lou's sign. Right kidney is unremarkable.. IMPRESSION: CHOLELITHIASIS.
[2017-10-07 14:11] LABS: Basophils % (A) 1 %; Eosinophils # (A) 0.1 k/uL (0-0.7); Eosinophils % (A) 2 %; HCT 22.6 % (34.0-46.0); HGB 7.7 gm/dL (11.4-16.0); Lymphocytes # (A) 1.3 k/uL (1.0-4.8); Lymphocytes % (A) 23 %; MCH 30.7 pg (25.0-35.0); MCHC 33.9 g/dL (31.0-37.0); MCV 90.6 fL (80.0-100.0); Mean Platelet Volume 8.1; Monocytes # (A) 0.3 k/uL (0-1.0); Monocytes % (A) 6 %; Neutrophils # (A) 3.8 k/uL (1.3-7.7); Neutrophils % (A) 67 %; Platelet Count 269 k/uL (150-450); RDW 13.6 % (11.5-15.5); Reticulocyte % 3.5 % (0.5-2.0); WBC 5.6 k/uL (3.8-10.6)
[2017-10-07 14:27] LABS: ALT 63 U/L (9-52); AST 51 U/L (14-36); Albumin 2.3 g/dL (3.5-5.0); Alkaline Phosphatase 49 U/L (38-126); Anion Gap 3 mmol/L; Blood Urea Nitrogen 11 mg/dL (7-17); Calcium 8.4 mg/dL (8.4-10.2); Carbon Dioxide 24 mmol/L (22-30); Chloride 111 mmol/L (98-107); Glucose 114 mg/dL (74-99); LDH 364 U/L (313-618); Magnesium 1.9 mg/dL (1.6-2.3); Phosphorus 2.5 mg/dL (2.5-4.5); Potassium 3.6 mmol/L (3.5-5.1); Sodium 138 mmol/L (137-145); Total Bilirubin 0.2 mg/dL (0.2-1.3); Total Protein 4.7 g/dL (6.3-8.2)
--- NOTE | 2017-10-07 15:48 | P.PN ---
Subjective Progress Note Date: 10/07/17 Principal diagnosis: Fall Patient is still confused, she is not able to give a reasonable history. She is still complaining from lower abdominal pain. No family at the bedside. Tried to call the detention she came from and her son but was not successful. Objective - Vital Signs Vital signs: Vital Signs Temp 98.2 F 10/07/17 07:00 Pulse 59 L 10/07/17 07:00 Resp 16 10/07/17 07:00 BP 102/55 10/07/17 07:00 Pulse Ox 100 10/07/17 07:00 Intake & Output 10/06/17 10/07/17 10/07/17 18:59 06:59 18:59 Intake Total 800 Balance 800 Intake: Intake, IV Titration 800 Amount Sodium Chloride 0.9% 1, 800 000 ml @ 100 mls/hr IV . Q10H [facility] Rx#:[id number] Other: Voiding Method Diaper Diaper # Voids 1 1 # Bowel Movements 2 - Exam Constitutional: No acute distress Eyes:Anicteric sclerae, moist conjunctiva, no lid-lag, PERRLA, ENMT: Very dry mucous membranes, oropharynx clear, no erythema, exudates Neck: Supple, FROM, no masses, or JVD, No carotid bruits, No thyromegaly Lungs: Clear to auscultation, Clear to percussion, Normal respiratory effort, no accessory muscle use Cardiovascular: Heart regular in rate and rhythm, No murmurs, gallops, or rubs, No peripheral edema Abdominal: Soft, Nontender, no guarding, rebound or rigidity, Normoactive bowel sounds, No hepatomegaly, No splenomegaly, No palpable mass Skin: Multiple bruises all over the skin especially on the face, the knees. Normal temperature, tone, texture, turgor, no induration, No subcutaneous nodules, No rash, lesions, No ulcers Extremities: No digital cyanosis, No clubbing, Pedal pulses intact and symmetrical, Radial pulses intact and symmetrical, No calf tenderness Neuro: Alert and oriented X3 - Labs CBC & Chem 7: 10/07/17 13:41 10/07/17 13:41 Labs: Abnormal Lab Results - Last 24 Hours (Table) 10/07/17 10/07/17 10/07/17 Range/Units 13:35 13:41 13:41 RBC 2.50 L (3.80-5.40) m/uL Hgb 7.7 L (11.4-16.0) gm/dL Hct 22.6 L (34.0-46.0) % Retic Count (0.5-2.0) % Chloride 111 H (98-107) mmol/L Glucose 114 H (74-99) mg/dL AST 51 H (14-36) U/L ALT 63 H (9-52) U/L Total Protein 4.7 L (6.3-8.2) g/dL Albumin 2.3 L (3.5-5.0) g/dL Stool Occult Blood Positive H (Negative) 10/07/17 Range/Units 13:41 RBC (3.80-5.40) m/uL Hgb (11.4-16.0) gm/dL Hct (34.0-46.0) % Retic Count 3.5 H (0.5-2.0) % Chloride (98-107) mmol/L Glucose (74-99) mg/dL AST (14-36) U/L ALT (9-52) U/L Total Protein (6.3-8.2) g/dL Albumin (3.5-5.0) g/dL Stool Occult Blood (Negative) Microbiology - Last 24 Hours (Table) 10/05/17 13:10 Urine Culture - Final Urine,Clean Catch Assessment and Plan Plan: #1 Change in mental status/Acute encephalopathy/Fall: Unclear etiology Continue with IV fluids. #2 Abdominal pain: CT abd and pelvis--- showed possible cholecystitis, right upper quadrant ultrasound done and there was no cholecystitis signs seen on the ultrasound. Computed tomography scan also showed a possible hematoma or mass in the urinary bladder, seen by urology who elected to do outpatient cystoscopy. Patient was evaluated by surgery, we'll discuss patient case with them #3 New onset anemia: Stool for occult blood was positive, consult GI We'll transfuse 1 unit of packed red blood cells Anemia workup sent #4 Hypokalemia: Replaced. #5 Hypothyroidism/chronic constipation/anxiety: All stable Resume meds.
[2017-10-07 23:09] LABS: Iron Saturation 13.33 (12.00-45.00)
[2017-10-08] MEDS: SODIUM CHLORIDE 0.9% 1,000 ML IV SCH ×3 (04:19→22:46)
[2017-10-08] MEDS: LEVOTHYROXINE 50 MCG TAB PO SCH (05:41)
[2017-10-08 07:40] LABS: Basophils # (A) 0.1 k/uL (0-0.2); Basophils % (A) 1 %; Eosinophils # (A) 0.2 k/uL (0-0.7); Eosinophils % (A) 3 %; HGB 7.8 gm/dL (11.4-16.0); Lymphocytes # (A) 1.3 k/uL (1.0-4.8); Lymphocytes % (A) 24 %; MCH 30.7 pg (25.0-35.0); MCV 90.3 fL (80.0-100.0); Mean Platelet Volume 8.2; Monocytes # (A) 0.4 k/uL (0-1.0); Monocytes % (A) 7 %; Neutrophils # (A) 3.5 k/uL (1.3-7.7); Neutrophils % (A) 64 %; Platelet Count 268 k/uL (150-450); RBC 2.54 m/uL (3.80-5.40); RDW 13.8 % (11.5-15.5); WBC 5.5 k/uL (3.8-10.6)
[2017-10-08] MEDS: METOCLOPRAMIDE 10 MG TAB PO SCH ×2 (08:13→18:22)
[2017-10-08 08:20] LABS: Anion Gap 5 mmol/L; Blood Urea Nitrogen 7 mg/dL (7-17); Calcium 8.4 mg/dL (8.4-10.2); Carbon Dioxide 21 mmol/L (22-30); Chloride 113 mmol/L (98-107); Glucose 75 mg/dL (74-99); Magnesium 1.8 mg/dL (1.6-2.3); Phosphorus 2.8 mg/dL (2.5-4.5); Potassium 3.6 mmol/L (3.5-5.1); Sodium 139 mmol/L (137-145)
[2017-10-08] MEDS: PARoxetine 20 MG TAB PO SCH (08:55)
[2017-10-08] MEDS: ALPRAZolam 0.25 MG TAB PO SCH (08:56)
--- NOTE | 2017-10-08 11:56 | P.PN ---
Progress Note - Text Progress Note Date: 10/08/17 The patient remains stable. She is still confused. She has some minimal epigastric pain. Her ultrasound shows evidence of cholelithiasis. The patient be scheduled for EGD in the a.m. If this is normal. She will be scheduled for laparoscopic cholecystectomy when stable.
--- NOTE | 2017-10-08 12:36 | P.PN ---
Subjective Progress Note Date: 10/08/17 Principal diagnosis: Fall Patient is still confused, not able to provide a reasonable history. Still having abdominal pain. Objective - Vital Signs Vital signs: Vital Signs Temp 97.9 F 10/08/17 07:00 Pulse 68 10/08/17 07:00 Resp 16 10/08/17 07:00 BP 118/60 10/08/17 07:00 Pulse Ox 100 10/08/17 07:00 Intake & Output 10/07/17 10/08/17 10/08/17 18:59 06:59 18:59 Intake Total 1290 Balance 1290 Intake: Intake, IV Titration 800 Amount Piperacillin-Tazobactam 3 50 .375 gm In Dextrose/Water 1 50ml.bag @ 12.5 mls/hr IVPB Q8HR [facility] Rx#: [id number] Sodium Chloride 0.9% 1, 750 000 ml @ 100 mls/hr IV . Q10H [facility] Rx#:[id number] Oral 490 Other: Voiding Method Diaper Diaper Diaper # Voids 2 # Bowel Movements 3 - Exam Constitutional: No acute distress Eyes:Anicteric sclerae, moist conjunctiva, no lid-lag, PERRLA, ENMT: Very dry mucous membranes, oropharynx clear, no erythema, exudates Neck: Supple, FROM, no masses, or JVD, No carotid bruits, No thyromegaly Lungs: Clear to auscultation, Clear to percussion, Normal respiratory effort, no accessory muscle use Cardiovascular: Heart regular in rate and rhythm, No murmurs, gallops, or rubs, No peripheral edema Abdominal: Soft, Nontender, no guarding, rebound or rigidity, Normoactive bowel sounds, No hepatomegaly, No splenomegaly, No palpable mass Skin: Multiple bruises all over the skin especially on the face, the knees. Normal temperature, tone, texture, turgor, no induration, No subcutaneous nodules, No rash, lesions, No ulcers Extremities: No digital cyanosis, No clubbing, Pedal pulses intact and symmetrical, Radial pulses intact and symmetrical, No calf tenderness Neuro: Alert and oriented X3 - Labs CBC & Chem 7: 10/08/17 07:19 10/08/17 07:19 Labs: Abnormal Lab Results - Last 24 Hours (Table) 10/07/17 10/07/17 10/07/17 Range/Units 13:35 13:41 13:41 RBC 2.50 L (3.80-5.40) m/uL Hgb 7.7 L (11.4-16.0) gm/dL Hct 22.6 L (34.0-46.0) % Retic Count (0.5-2.0) % Chloride 111 H (98-107) mmol/L Carbon Dioxide (22-30) mmol/L Glucose 114 H (74-99) mg/dL AST 51 H (14-36) U/L ALT 63 H (9-52) U/L Total Protein 4.7 L (6.3-8.2) g/dL Albumin 2.3 L (3.5-5.0) g/dL Stool Occult Blood Positive H (Negative) Crossmatch 10/07/17 10/07/17 10/08/17 Range/Units 13:41 16:16 07:19 RBC 2.54 L (3.80-5.40) m/uL Hgb 7.8 L (11.4-16.0) gm/dL Hct 23.0 L (34.0-46.0) % Retic Count 3.5 H (0.5-2.0) % Chloride (98-107) mmol/L Carbon Dioxide (22-30) mmol/L Glucose (74-99) mg/dL AST (14-36) U/L ALT (9-52) U/L Total Protein (6.3-8.2) g/dL Albumin (3.5-5.0) g/dL Stool Occult Blood (Negative) Crossmatch See Detail 10/08/17 Range/Units 07:19 RBC (3.80-5.40) m/uL Hgb (11.4-16.0) gm/dL Hct (34.0-46.0) % Retic Count (0.5-2.0) % Chloride 113 H (98-107) mmol/L Carbon Dioxide 21 L (22-30) mmol/L Glucose (74-99) mg/dL AST (14-36) U/L ALT (9-52) U/L Total Protein (6.3-8.2) g/dL Albumin (3.5-5.0) g/dL Stool Occult Blood (Negative) Crossmatch Assessment and Plan Plan: #1 Change in mental status/Acute encephalopathy/Fall: Unclear etiology Continue with IV fluids. #2 Abdominal pain: CT abd and pelvis--- showed possible cholecystitis, right upper quadrant ultrasound done and there was no cholecystitis signs seen on the ultrasound Computed tomography scan also showed a possible hematoma or mass in the urinary bladder, seen by urology who elected to do outpatient cystoscopy. Patient was evaluated by surgery--recommends laparoscopic cholecystectomy as an outpatient once patient is stable #3 New onset anemia: Stool for occult blood was positive, Surgery planning EGD in a.m. Transfuse 1 unit of packed red blood cells Anemia workup sent #4 Hypokalemia: Replaced. #5 Hypothyroidism/chronic constipation/anxiety: All stable Resume meds.
[2017-10-09] MEDS: LEVOTHYROXINE 50 MCG TAB PO SCH (05:27)
[2017-10-09] MEDS: ALPRAZolam 0.25 MG TAB PO SCH (09:19)
[2017-10-09] MEDS: METOCLOPRAMIDE 10 MG TAB PO SCH ×2 (09:21→18:19)
[2017-10-09] MEDS: SODIUM CHLORIDE 0.9% 1,000 ML IV SCH ×2 (09:21→20:09)
[2017-10-09 11:42] LABS: HCT 28.3 % (34.0-46.0); MCHC 35.4 g/dL (31.0-37.0); MCV 87.7 fL (80.0-100.0); Mean Platelet Volume 8.6; Platelet Count 297 k/uL (150-450); RBC 3.23 m/uL (3.80-5.40); RDW 14.2 % (11.5-15.5); WBC 6.1 k/uL (3.8-10.6)
[2017-10-09] MEDS: PARoxetine 20 MG TAB PO SCH (14:22)
[2017-10-09] MEDS: FERROUS SULFATE 325 MG TAB PO SCH ×2 (14:23→18:18)
--- NOTE | 2017-10-09 14:28 | P.PN ---
Subjective Progress Note Date: 10/09/17 Principal diagnosis: Fall Patient is more awake and oriented today, she continues to have pain in the abdomen and some in the right arm at the IV site. Objective - Vital Signs Vital signs: Vital Signs Temp 98.2 F 10/09/17 08:36 Pulse 67 10/09/17 08:36 Resp 16 10/09/17 08:36 BP 115/61 10/09/17 08:36 Pulse Ox 98 10/09/17 08:36 Intake & Output 10/08/17 10/09/17 10/09/17 18:59 06:59 18:59 Intake Total 500 310 Balance 500 310 Intake: Oral 500 Blood Product 0 310 Rc As-1 Unit 0 310 [id number] Other: Voiding Method Diaper Diaper Diaper # Voids 1 1 - Exam Constitutional: No acute distress Eyes:Anicteric sclerae, moist conjunctiva, no lid-lag, PERRLA, ENMT: Very dry mucous membranes, oropharynx clear, no erythema, exudates Neck: Supple, FROM, no masses, or JVD, No carotid bruits, No thyromegaly Lungs: Clear to auscultation, Clear to percussion, Normal respiratory effort, no accessory muscle use Cardiovascular: Heart regular in rate and rhythm, No murmurs, gallops, or rubs, No peripheral edema Abdominal: Soft, tender on the lower part, no guarding, rebound or rigidity, Normoactive bowel sounds, No hepatomegaly, No splenomegaly, No palpable mass Skin: Multiple bruises all over the skin especially on the face, the knees. Normal temperature, tone, texture, turgor, no induration, No subcutaneous nodules, No rash, lesions, No ulcers Extremities: No digital cyanosis, No clubbing, Pedal pulses intact and symmetrical, Radial pulses intact and symmetrical, No calf tenderness Neuro: Alert and oriented X3 - Labs CBC & Chem 7: 10/09/17 10:51 10/08/17 07:19 Labs: Abnormal Lab Results - Last 24 Hours (Table) 10/07/17 10/07/17 10/09/17 Range/Units 13:41 16:16 10:51 RBC 3.23 L (3.80-5.40) m/uL Hgb 10.0 L D (11.4-16.0) gm/dL Hct 28.3 L (34.0-46.0) % Iron 28 L (50-170) ug/dL TIBC 210 L (228-460) ug/dL Crossmatch See Detail Assessment and Plan Plan: #1 Change in mental status/Acute encephalopathy/Fall: Likely metabolic encephalopathy secondary to dehydration and severe anemia. Rule out blood loss. Continue with IV fluids as patient only on clears. #2 Abdominal pain: CT abd and pelvis--- showed possible cholecystitis, right upper quadrant ultrasound done and there was no cholecystitis signs seen on the ultrasound Computed tomography scan also showed a possible hematoma or mass in the urinary bladder, seen by urology who elected to do outpatient cystoscopy. Patient was evaluated by surgery--recommends laparoscopic cholecystectomy as an outpatient once patient is stable #3 New onset anemia: Stool for occult blood was positive, Surgery planning EGD tomorrow S/P 1 unit of packed red blood cells transfusion on 10/08 Anemia workup showed iron deficiency, will start iron replacement #4 Hypokalemia: Replaced. #5 Hypothyroidism/anxiety: All stable, TSH within normal limits. Resume meds.
--- NOTE | 2017-10-09 16:43 | P.PN ---
Progress Note - Text Progress Note Date: 10/09/17 The patient was scheduled for an EGD today. The consent for EGD cannot be obtained from the caregiver. Her EGD has been rescheduled for tomorrow. On exam her vital signs are stable. Her abdomen soft there is some minimal epigastric tenderness. The patient still quite confused.
--- NOTE | 2017-10-09 18:27 | P.PN ---
Progress Note - Text Progress Note Date: 10/09/17 I spoke with the patient's son yesterday, who explained that his mother was recently treated for a UTI. I explained the rationale for cystoscopy to rule out intravesical pathology. This will be performed as an outpatient 2-3 weeks following discharge. Please notify me if I can be of any further assistance.
[2017-10-09] MEDS ORDERED: HYDROcodone/APAP 5-325MG 1 EACH TAB PO PRN (20:01)
[2017-10-09] MEDS: traMADol 50 MG TAB PO PRN (20:09)
[2017-10-10] MEDS: SODIUM CHLORIDE 0.9% 1,000 ML IV SCH ×2 (06:24→18:18)
[2017-10-10] MEDS: LEVOTHYROXINE 50 MCG TAB PO SCH (07:55)
[2017-10-10 08:08] LABS: Basophils # (A) 0.1 k/uL (0-0.2); Basophils % (A) 1 %; Eosinophils # (A) 0.2 k/uL (0-0.7); Eosinophils % (A) 3 %; HCT 30.2 % (34.0-46.0); HGB 10.7 gm/dL (11.4-16.0); Lymphocytes % (A) 18 %; MCHC 35.6 g/dL (31.0-37.0); MCV 87.2 fL (80.0-100.0); Mean Platelet Volume 7.6; Monocytes # (A) 0.4 k/uL (0-1.0); Monocytes % (A) 7 %; Neutrophils % (A) 69 %; Platelet Count 351 k/uL (150-450); RBC 3.46 m/uL (3.80-5.40); RDW 14.5 % (11.5-15.5); WBC 5.8 k/uL (3.8-10.6)
[2017-10-10 08:29] LABS: Anion Gap 9 mmol/L; Blood Urea Nitrogen 7 mg/dL (7-17); Calcium 8.7 mg/dL (8.4-10.2); Carbon Dioxide 21 mmol/L (22-30); Chloride 108 mmol/L (98-107); Glucose 53 mg/dL (74-99); Potassium 3.2 mmol/L (3.5-5.1); Sodium 138 mmol/L (137-145)
[2017-10-10] MEDS: PARoxetine 20 MG TAB PO SCH (08:48)
[2017-10-10] MEDS: METOCLOPRAMIDE 10 MG TAB PO SCH ×2 (08:48→18:19)
[2017-10-10] MEDS: FERROUS SULFATE 325 MG TAB PO SCH ×3 (08:48→18:17)
[2017-10-10] MEDS: ALPRAZolam 0.25 MG TAB PO SCH (08:48)
[2017-10-10 09:12] VITALS: BMI 24.4
[2017-10-10] MEDS ORDERED: IV FLUID CONTINUATION 1,000 ML IV ONE (11:34)
[2017-10-10] MEDS ORDERED: LIDOCAINE 1% INJ 10MG/ML (20 ML MDV) ONE (11:37)
[2017-10-10] MEDS ORDERED: PROPOFOL 10 MG/ML 20 ML VIAL IV ONE (11:37)
--- NOTE | 2017-10-10 11:46 | P.OP ---
Date of Procedure: 10/10/17 Preoperative Diagnosis: Epigastric abdominal pain Postoperative Diagnosis: Mild duodenitis Mild antral gastritis Hiatal hernia Mild esophagitis Procedure(s) Performed: EGD Anesthesia: MAC Surgeon: Zaheer Bui Pathology: other (Duodenum, antrum, esophagus) Condition: stable Disposition: PACU Description of Procedure: The patient's placed on the endoscopy table in the lateral position. She received IV sedation. The gastroscope was placed oropharynx and passed into the esophagus and stomach and into the first and second part of the duodenum. The duodenum there is some mild inflammation. This was biopsied. The scope was then brought back the antrum this was minimal inflamed and a biopsies performed. The scope was then retroflexed and the remainder of the stomach appeared normal. There was a small fixed hiatal hernia. The GE junction was at 38 cm. The distal esophagus was mildly inflamed a biopsies performed. The proximal esophagus appeared normal. Scope was withdrawn for patient.
--- NOTE | 2017-10-10 12:59 | P.PN ---
Subjective Progress Note Date: 10/10/17 Principal diagnosis: Patient is confused and unable to give any history but does not appear to be in distress Review of systems unable to get Vital Signs - 24 hr 10/09/17 10/09/17 10/09/17 15:00 16:00 23:00 Temperature 97.3 F L 97.3 F L Pulse Rate [ 69 67 Pulse Oximetery ] Respiratory 16 16 20 Rate Blood Pressure 126/60 [Left Arm] Blood Pressure 126/68 [Right Arm] O2 Sat by Pulse 95 97 Oximetry 10/10/17 07:00 Temperature 97.2 F L Pulse Rate [ 65 Pulse Oximetery ] Respiratory 20 Rate Blood Pressure 139/70 [Left Arm] Blood Pressure [Right Arm] O2 Sat by Pulse 93 L Oximetry Constitutional: No acute distress, Eyes: Anicteric sclerae, ENMT: NC/AT Oropharynx clear, no erythema, exudates Neck: Supple, Lungs: Clear to auscultation Normal respiratory effort, no accessory muscle use Cardiovascular: Heart regular in rate and rhythm, No murmurs, gallops, or rubs No peripheral edema Abdominal: Soft Nontender, no guarding, rebound or rigidity Abdomen Skin: Normal temperature, tone, texture, turgor No induration No subcutaneous nodules No rash, lesions No ulcers Extremities: No digital cyanosis No clubbing Pedal pulses intact and symmetrical Radial pulses intact and symmetrical Normal gait and station No calf tenderness Psychiatric: Confused Neuro: Generalized weakness Likely metabolic encephalopathy multifactorial Underlying dementia is likely Baseline is not clear at this time we'll continue to monitor #2 Abdominal pain: CT abd and pelvis--- showed possible cholecystitis, right upper quadrant ultrasound done and there was no cholecystitis signs seen on the ultrasound Discussed with surgery if the patient continued to be symptomatic considering cholecystectomy #3 New onset anemia: Stool for occult blood was positive, EGD did not show any active bleeding at this time we'll continue to monitor currently hemoglobin stable #4 Hypokalemia: Replaced. #5 Hypothyroidism/anxiety: All stable, TSH within normal limits. Resume meds. Expected date of discharge 2-3 days Objective - Vital Signs Vital signs: Vital Signs Temp 97.2 F L 10/10/17 07:00 Pulse 65 10/10/17 07:00 Resp 20 10/10/17 07:00 BP 139/70 10/10/17 07:00 Pulse Ox 93 L 10/10/17 07:00 Intake & Output 10/09/17 10/10/17 10/10/17 18:59 06:59 18:59 Intake Total 800 500 50 Output Total 2 Balance 798 500 50 Weight 56.699 kg Intake: IV 800 50 Sodium Chloride 0.9% 1, 800 000 ml @ 100 mls/hr IV . Q10H MARII Rx#:[id number] Oral 500 Output: Urine 2 Other: Voiding Method Diaper Diaper Incontinent Incontinent # Voids 1 4 # Bowel Movements 1 - Labs CBC & Chem 7: 10/10/17 07:41 10/10/17 07:41 Labs: Abnormal Lab Results - Last 24 Hours (Table) 10/10/17 10/10/17 Range/Units 07:41 07:41 RBC 3.46 L (3.80-5.40) m/uL Hgb 10.7 L (11.4-16.0) gm/dL Hct 30.2 L (34.0-46.0) % Potassium 3.2 L (3.5-5.1) mmol/L Chloride 108 H (98-107) mmol/L Carbon Dioxide 21 L (22-30) mmol/L Glucose 53 L (74-99) mg/dL
[2017-10-11] MEDS: LEVOTHYROXINE 50 MCG TAB PO SCH (07:57)
[2017-10-11] MEDS: SODIUM CHLORIDE 0.9% 1,000 ML IV SCH ×2 (07:58→11:23)
[2017-10-11] MEDS: METOCLOPRAMIDE 10 MG TAB PO SCH ×2 (08:04→17:53)
[2017-10-11] MEDS: ALPRAZolam 0.25 MG TAB PO SCH (08:04)
[2017-10-11] MEDS: PARoxetine 20 MG TAB PO SCH (08:04)
[2017-10-11] MEDS: FERROUS SULFATE 325 MG TAB PO SCH ×3 (08:04→17:53)
[2017-10-11 09:23] LABS: ALT 40 U/L (9-52); AST 25 U/L (14-36); Albumin 2.5 g/dL (3.5-5.0); Alkaline Phosphatase 61 U/L (38-126); Anion Gap 8 mmol/L; Blood Urea Nitrogen 5 mg/dL (7-17); Calcium 8.6 mg/dL (8.4-10.2); Carbon Dioxide 21 mmol/L (22-30); Chloride 110 mmol/L (98-107); Glucose 75 mg/dL (74-99); Sodium 139 mmol/L (137-145); Total Bilirubin 0.3 mg/dL (0.2-1.3)
--- NOTE | 2017-10-11 10:09 | P.PN ---
Subjective Progress Note Date: 10/11/17 Principal diagnosis: Still confused Not complaining of chest pain or shortness of breath does have abdominal tenderness in the epigastric region Vital Signs 10/11/17 07:00 Temperature 97.5 F L Pulse Rate [ 67 Pulse Oximetery ] Respiratory 15 Rate Blood Pressure 136/71 [Right Arm] O2 Sat by Pulse 99 Oximetry Constitutional: No acute distress, confused Eyes: Anicteric sclerae, moist conjunctiva, no lid-lag PERRLA ENMT: cranial nerves grossly intact Neck: Supple, Lungs: Clear to auscultation Normal respiratory effort, no accessory muscle use Cardiovascular: Heart regular in rate and rhythm, No murmurs, gallops, or rubs No peripheral edema Abdominal: Soft with some epigastric tenderness Skin: Normal temperature, tone, texture, turgor No induration No subcutaneous nodules No rash, lesions No ulcers Extremities: No digital cyanosis No clubbing Pedal pulses intact and symmetrical Radial pulses intact and symmetrical Normal gait and station No calf tenderness Psychiatric:Alert and oriented to person, place and time Appropriate affect Intact judgement Neuro: weakness Laboratory Results - last 24 hr 10/08/17 07:19 RBC Folate 1,260 H Assessment and plan Confusion and out of mental status Likely metabolic encephalopathy multifactorial Underlying dementia is likely Baseline is not clear at this time we'll continue to monitor #2 Abdominal pain: CT abd and pelvis--- showed possible cholecystitis, right upper quadrant ultrasound done and there was no cholecystitis signs seen on the ultrasound Continued to have epigastric tenderness may consider cholecystectomy discussed with surgery #3 New onset anemia: Stool for occult blood was positive, EGD did not show any active bleeding Currently stable #4 Hypokalemia: Replaced. #5 Hypothyroidism/anxiety: All stable, TSH within normal limits. Resume meds. Expected date of discharge 3 days Objective - Vital Signs Vital signs: Vital Signs Temp 97.5 F L 10/11/17 07:00 Pulse 67 10/11/17 07:00 Resp 15 10/11/17 07:00 BP 136/71 10/11/17 07:00 Pulse Ox 99 10/11/17 07:00 Intake & Output 10/10/17 10/11/17 10/11/17 18:59 06:59 18:59 Intake Total 50 350 Balance 50 350 Weight 56.699 kg Intake: IV 50 Oral 350 Other: Voiding Method Diaper Diaper Diaper Incontinent Incontinent Incontinent # Voids 5 3 - Labs CBC & Chem 7: 10/10/17 07:41 10/10/17 07:41 Labs: Abnormal Lab Results - Last 24 Hours (Table) 10/08/17 Range/Units 07:19 RBC Folate 1,260 H (280 - 791) ng/mL
[2017-10-11 10:10] LABS: Potassium 2.8 mmol/L (3.5-5.1)
[2017-10-11] MEDS ORDERED: POTASSIUM CHLORIDE ER 20 MEQ TAB.ER PO STA (10:17)
[2017-10-11 10:19] LABS: Basophils % (A) 1 %; Eosinophils # (A) 0.1 k/uL (0-0.7); Eosinophils % (A) 2 %; HCT 30.2 % (34.0-46.0); HGB 10.2 gm/dL (11.4-16.0); Lymphocytes # (A) 1.1 k/uL (1.0-4.8); Lymphocytes % (A) 23 %; MCH 29.7 pg (25.0-35.0); MCHC 33.9 g/dL (31.0-37.0); MCV 87.6 fL (80.0-100.0); Mean Platelet Volume 8.5; Monocytes # (A) 0.4 k/uL (0-1.0); Monocytes % (A) 9 %; Neutrophils # (A) 3.1 k/uL (1.3-7.7); Neutrophils % (A) 64 %; Platelet Count 354 k/uL (150-450); RBC 3.45 m/uL (3.80-5.40); RDW 14.8 % (11.5-15.5); WBC 4.8 k/uL (3.8-10.6)
--- NOTE | 2017-10-11 14:34 | P.PN ---
Subjective Progress Note Date: 10/11/17 82-year-old female seen and examined. Currently resting in bed pleasantly confused oriented to self only. With palpitation to the abdominal wall indicates having soreness in the epigastric area radiating to right upper quadrant.. Abdomen is soft nondistended Patient is status post EGD done on October 10 showed hiatal hernia, mild esophagitis, mild duodenitis, mild antral gastritis potassium 2.8 which replacement has been given Objective - Vital Signs Vital signs: Vital Signs Temp 97.5 F L 10/11/17 07:00 Pulse 67 10/11/17 07:00 Resp 15 10/11/17 07:00 BP 136/71 10/11/17 07:00 Pulse Ox 99 10/11/17 07:00 Intake & Output 10/10/17 10/11/17 10/11/17 18:59 06:59 18:59 Intake Total 50 350 900 Balance 50 350 900 Weight 56.699 kg Intake: IV 50 Oral 350 900 Other: Voiding Method Diaper Diaper Diaper Incontinent Incontinent Incontinent # Voids 5 3 4 - Exam Physical exam Abdomen soft nontender nondistended active bowel sounds no nausea no vomiting no stool - Labs CBC & Chem 7: 10/11/17 08:17 10/11/17 08:17 Labs: Abnormal Lab Results - Last 24 Hours (Table) 10/08/17 10/11/17 10/11/17 Range/Units 07:19 08:17 08:17 RBC 3.45 L (3.80-5.40) m/uL Hgb 10.2 L (11.4-16.0) gm/dL Hct 30.2 L (34.0-46.0) % Potassium 2.8 L* (3.5-5.1) mmol/L Chloride 110 H (98-107) mmol/L Carbon Dioxide 21 L (22-30) mmol/L BUN 5 L (7-17) mg/dL Total Protein 5.0 L (6.3-8.2) g/dL Albumin 2.5 L (3.5-5.0) g/dL RBC Folate 1,260 H (280 - 791) ng/mL Assessment and Plan Assessment: Impression Present on admission epigastric abdominal pain status post EGD done on October 10 showed mild duodenitis, mild antral gastritis, hiatal hernia Underlying dementia suspected Stool for occult blood positive with an EGD showing no active bleeding Hypokalemia being corrected Ultrasound of the gallbladder done on October 07 showed cholelithiasis with a 1.2 centimeter gallstone in the neck of the gallbladder Plan Consent for lap cholecystectomy will need to be obtained from patient's guardian discussed with nursing Will schedule for a lap cholecystectomy tomorrow if consent is obtained Nothing by mouth after midnight IV fluid for hydration The above impression and plan of care have been discussed and directed by signing physician. Lois Flaherty nurse practitioner acting as scribe for signing physician.
[2017-10-12] MEDS: SODIUM CHLORIDE 0.9% 1,000 ML IV SCH ×3 (01:07→18:11)
[2017-10-12] MEDS: LEVOTHYROXINE 50 MCG TAB PO SCH (06:34)
[2017-10-12 07:48] LABS: Basophils % (A) 1 %; Eosinophils # (A) 0.1 k/uL (0-0.7); Eosinophils % (A) 2 %; HGB 10.9 gm/dL (11.4-16.0); Lymphocytes # (A) 1.1 k/uL (1.0-4.8); Lymphocytes % (A) 18 %; MCH 30.9 pg (25.0-35.0); MCV 88.1 fL (80.0-100.0); Monocytes # (A) 0.4 k/uL (0-1.0); Monocytes % (A) 6 %; Neutrophils # (A) 4.2 k/uL (1.3-7.7); Neutrophils % (A) 71 %; Platelet Count 373 k/uL (150-450); RBC 3.52 m/uL (3.80-5.40); RDW 14.8 % (11.5-15.5); WBC 5.9 k/uL (3.8-10.6)
[2017-10-12 08:04] LABS: ALT 36 U/L (9-52); AST 22 U/L (14-36); Albumin 2.6 g/dL (3.5-5.0); Alkaline Phosphatase 61 U/L (38-126); Anion Gap 7 mmol/L; Blood Urea Nitrogen 3 mg/dL (7-17); Calcium 8.6 mg/dL (8.4-10.2); Carbon Dioxide 23 mmol/L (22-30); Chloride 107 mmol/L (98-107); Glucose 102 mg/dL (74-99); Sodium 137 mmol/L (137-145); Total Bilirubin 0.2 mg/dL (0.2-1.3); Total Protein 5.2 g/dL (6.3-8.2)
[2017-10-12] MEDS: ALPRAZolam 0.25 MG TAB PO SCH (08:13)
[2017-10-12] MEDS: PARoxetine 20 MG TAB PO SCH (08:13)
[2017-10-12] MEDS: METOCLOPRAMIDE 10 MG TAB PO SCH ×2 (08:13→18:11)
[2017-10-12] MEDS: FERROUS SULFATE 325 MG TAB PO SCH ×3 (08:13→18:11)
[2017-10-12] MEDS: POTASSIUM CHLORIDE 10 MEQ in SODIUM CHLORIDE 0.9% 100 ML IVPB SCH ×2 (09:48→10:51)
[2017-10-12] MEDS ORDERED: IV FLUID CONTINUATION 1,000 ML IV ONE (11:28)
[2017-10-12] MEDS ORDERED: NEOSTIGMINE 1 MG/ML 10 ML VIAL ONE (11:54)
[2017-10-12] MEDS ORDERED: ROCURONIUM BROMIDE 10 MG/ML 10 ML VIAL IV ONE (11:54)
[2017-10-12] MEDS ORDERED: ETOMIDATE 2 MG/ML 10 ML VIAL ONE (11:54)
[2017-10-12] MEDS ORDERED: GLYCOPYRROLATE 0.2 MG/ML 2 ML VIAL ONE (11:54)
[2017-10-12] MEDS ORDERED: LIDOCAINE 1% INJ 10MG/ML (20 ML MDV) ONE (11:54)
[2017-10-12] MEDS ORDERED: fentaNYL (PF) 50 MCG/ML 2 ML AMP ONE (11:54)
[2017-10-12] MEDS ORDERED: SODIUM CHLORIDE 0.9% 50 ML with ceFAZolin 1,000 MG IV ONE ×2 (12:11)
[2017-10-12] MEDS ORDERED: BUPIVACAINE (PF) 0.5% 30 ML VIAL SQ ONE (12:28)
--- NOTE | 2017-10-12 12:35 | P.OP ---
Date of Procedure: 10/12/17 Preoperative Diagnosis: Chronic cholecystitis Postoperative Diagnosis: Cholecystitis Chronic cholecystitis Procedure(s) Performed: Laparoscopic cholecystectomy Anesthesia: GIOVANY Surgeon: Zaheer Bui Estimated Blood Loss (ml): 5 Pathology: other (Gallbladder) Condition: stable Disposition: PACU Description of Procedure: The patient was placed on the operating table. The patient received a general endotracheal tube anesthesia. The patients abdomen was prepped and draped in the usual sterile fashion. Through an infraumbilical stab incision, the fascia of the anterior abdominal wall was grasped with a pair of Kochers and then the Veress needle was placed in the peritoneal cavity. Position of the Veress needle was confirmed with positive drop test. The abdomen was then insufflated. After adequate insufflation, the 10 mm trocar was placed in the peritoneal cavity. Following this the laparoscope was placed in the peritoneal cavity. The patient was placed in the head-up, right side up position and then a 5 mm trocar was placed in the right lateral and right subcostal position under direct visualization. A 8 mm trocar was placed in the epigastric position. The gallbladder was grasped in the fundus and infundibulum. Traction on the gallbladder was placed in the lateral and the cephalad positions. The triangle of Calot was visualized.. The cystic duct was bluntly dissected until the union of the cystic duct and common bile duct was seen. The cystic duct was then divided and sealed with the Harmonic scissors. A PDS Endoloop was then placed throughout the cystic duct stump. The cystic artery divided and sealed with the Harmonic scissors. The gallbladder was then removed from the liver bed using Harmonic scissors. The gallbladder was then extracted through the epigastric port site. Operative field was checked for any bleeding spots and Harmonic scissors was used to coagulate the liver bed. The abdomen was irrigated. The trocars were removed. The skin was closed using interrupted 3-0 Vicryl suture. Dermabond dressing were applied. The patient tolerated the procedure well.
--- NOTE | 2017-10-12 14:05 | P.PN ---
Subjective Principal diagnosis: Fall Patient is still confused, overall getting better. Objective - Vital Signs Vital signs: Vital Signs Temp 96.8 F L 10/12/17 12:54 Pulse 55 L 10/12/17 13:45 Resp 16 10/12/17 13:45 BP 152/75 10/12/17 13:45 Pulse Ox 96 10/12/17 13:45 Intake & Output 10/11/17 10/12/17 10/12/17 18:59 06:59 18:59 Intake Total 900 650 Output Total 5 Balance 900 645 Weight 56.699 kg Intake: IV 650 Oral 900 Output: Estimated Blood Loss 5 Other: Voiding Method Diaper Diaper Diaper Incontinent Incontinent Incontinent # Voids 4 4 - Exam Constitutional: No acute distress, confused Eyes: Anicteric sclerae, moist conjunctiva, no lid-lag PERRLA ENMT: cranial nerves grossly intact Neck: Supple, Lungs: Clear to auscultation Normal respiratory effort, no accessory muscle use Cardiovascular: Heart regular in rate and rhythm, No murmurs, gallops, or rubs No peripheral edema Abdominal: Soft with some epigastric tenderness Skin: Normal temperature, tone, texture, turgor No induration No subcutaneous nodules No rash, lesions No ulcers Extremities: No digital cyanosis No clubbing Pedal pulses intact and symmetrical Radial pulses intact and symmetrical Normal gait and station No calf tenderness Psychiatric:Alert and oriented to person only not to place or date. Neuro: weakness - Labs CBC & Chem 7: 10/12/17 07:23 10/12/17 07:23 Labs: Abnormal Lab Results - Last 24 Hours (Table) 10/12/17 10/12/17 Range/Units 07:23 07:23 RBC 3.52 L (3.80-5.40) m/uL Hgb 10.9 L (11.4-16.0) gm/dL Hct 31.0 L (34.0-46.0) % Potassium 3.0 L* (3.5-5.1) mmol/L BUN 3 L (7-17) mg/dL Creatinine 0.50 L (0.52-1.04) mg/dL Glucose 102 H (74-99) mg/dL Total Protein 5.2 L (6.3-8.2) g/dL Albumin 2.6 L (3.5-5.0) g/dL Assessment and Plan Plan: #1 Change in mental status/Acute encephalopathy/Fall: Likely metabolic encephalopathy secondary to dehydration and severe anemia. Underlying dementia is likely #2 Abdominal pain: CT abd and pelvis--- showed possible cholecystitis---going for cholecystectomy per surgery Computed tomography scan also showed a possible hematoma or mass in the urinary bladder, seen by urology who elected to do outpatient cystoscopy. #3 New onset anemia: Stool for occult blood was positive, EGD did not show any active bleeding S/P 1 unit of packed red blood cells transfusion on 10/08 Anemia workup showed iron deficiency, started iron replacement #4 Hypothyroidism/anxiety: All stable, TSH within normal limits. Resume meds. Expected date of discharge 2 days
[2017-10-13] MEDS: SODIUM CHLORIDE 0.9% 1,000 ML IV SCH ×3 (04:32→22:53)
[2017-10-13] MEDS: LEVOTHYROXINE 50 MCG TAB PO SCH ×2 (06:44→06:47)
[2017-10-13 08:01] LABS: Basophils % (A) 1 %; Eosinophils # (A) 0.2 k/uL (0-0.7); Eosinophils % (A) 3 %; HCT 32.4 % (34.0-46.0); Lymphocytes # (A) 1.1 k/uL (1.0-4.8); Lymphocytes % (A) 20 %; MCH 30.2 pg (25.0-35.0); MCHC 33.8 g/dL (31.0-37.0); MCV 89.3 fL (80.0-100.0); Monocytes # (A) 0.4 k/uL (0-1.0); Monocytes % (A) 7 %; Neutrophils # (A) 3.7 k/uL (1.3-7.7); Neutrophils % (A) 69 %; Platelet Count 363 k/uL (150-450); RBC 3.63 m/uL (3.80-5.40); WBC 5.4 k/uL (3.8-10.6)
[2017-10-13] MEDS: PARoxetine 20 MG TAB PO SCH (08:05)
[2017-10-13] MEDS: FERROUS SULFATE 325 MG TAB PO SCH ×3 (08:05→17:50)
[2017-10-13] MEDS: ALPRAZolam 0.25 MG TAB PO SCH (08:05)
[2017-10-13] MEDS: METOCLOPRAMIDE 10 MG TAB PO SCH ×2 (08:05→17:50)
[2017-10-13 08:16] LABS: ALT 35 U/L (9-52); AST 25 U/L (14-36); Albumin 2.4 g/dL (3.5-5.0); Alkaline Phosphatase 57 U/L (38-126); Anion Gap 7 mmol/L; Blood Urea Nitrogen 3 mg/dL (7-17); Calcium 8.8 mg/dL (8.4-10.2); Carbon Dioxide 25 mmol/L (22-30); Chloride 109 mmol/L (98-107); Glucose 83 mg/dL (74-99); Potassium 3.2 mmol/L (3.5-5.1); Sodium 141 mmol/L (137-145); Total Bilirubin 0.3 mg/dL (0.2-1.3); Total Protein 4.9 g/dL (6.3-8.2)
[2017-10-13] MEDS ORDERED: Potassium Replacement Protocol 1 EACH MISC MISCELLANE PRN (08:31)
[2017-10-13] MEDS ORDERED: POTASSIUM CHLORIDE 10 MEQ in WATER FOR INJECTION 1 100ML.BAG IVPB SCH (09:00)
[2017-10-13] MEDS ORDERED: Magnesium Replacement Protocol 1 EACH MISC MISCELLANE PRN (09:07)
[2017-10-13] MEDS ORDERED: POTASSIUM CHLORIDE 20 MEQ in SODIUM CHLORIDE 0.9% 100 ML IVPB STA (09:23)
[2017-10-13] MEDS ORDERED: POTASSIUM CHLORIDE ER 20 MEQ TAB.ER PO STA (09:23)
[2017-10-13] MEDS ORDERED: SALINE IVPB STA (09:32)
[2017-10-13] MEDS ORDERED: POTASSIUM CHLORIDE IVPB STA (09:32)
[2017-10-13] MEDS: MAGNESIUM SULFATE-D5W PMX 1 GM in DEXTROSE/WATER 1 100ML.BAG IVPB SCH ×2 (09:57→11:18)
[2017-10-13] MEDS: POTASSIUM CHLORIDE ER 20 MEQ TAB.ER PO SCH ×2 (09:58→11:19)
[2017-10-13] MEDS: POTASSIUM CHLORIDE 10 MEQ in SODIUM CHLORIDE 0.9% 100 ML IVPB SCH ×2 (09:58→11:18)
--- NOTE | 2017-10-13 14:55 | P.PN ---
Subjective Progress Note Date: 10/13/17 82-year-old female seen and examined this afternoon at the bedside currently sitting up taking a soft diet pleasantly confused oriented to self only surgical incision site dressings dry abdomen soft nondistended no nausea no vomiting Postop October 12 laparoscopic cholecystectomy for chronic cholecystitis Postop October 10 EGD mild esophagitis, hiatal hernia, mild atrophic gastritis and mild duodenitis Objective - Vital Signs Vital signs: Vital Signs Temp 97.4 F L 10/13/17 06:07 Pulse 65 10/13/17 06:07 Resp 16 10/13/17 08:00 BP 132/70 10/13/17 06:07 Pulse Ox 96 10/13/17 06:07 Intake & Output 10/12/17 10/13/17 10/13/17 18:59 06:59 18:59 Intake Total 650 Output Total 5 Balance 645 Weight 56.699 kg 56.699 kg Intake: IV 650 Output: Estimated Blood Loss 5 Other: Voiding Method Diaper Diaper Incontinent Incontinent # Voids 1 3 - Constitutional Constitutional Comment(s): Exam Abdomen soft surgical incision sites dry hypoactive bowel tones incontinent urine no stool no facial grimacing with palpitation to the abdominal wall feeding self diet with no nausea no vomiting incontinent urine - Labs CBC & Chem 7: 10/13/17 07:31 10/13/17 07:31 Labs: Abnormal Lab Results - Last 24 Hours (Table) 10/13/17 10/13/17 Range/Units 07:31 07:31 RBC 3.63 L (3.80-5.40) m/uL Hgb 11.0 L (11.4-16.0) gm/dL Hct 32.4 L (34.0-46.0) % Potassium 3.2 L (3.5-5.1) mmol/L Chloride 109 H (98-107) mmol/L BUN 3 L (7-17) mg/dL Total Protein 4.9 L (6.3-8.2) g/dL Albumin 2.4 L (3.5-5.0) g/dL Assessment and Plan Assessment: Impression Present on admission epigastric abdominal pain status post EGD done on October 10 showed mild duodenitis, mild antral gastritis, hiatal hernia Underlying dementia suspected Stool for occult blood positive with an EGD showing no active bleeding Hypokalemia being corrected Ultrasound of the gallbladder done on October 07 showed cholelithiasis with a 1.2 centimeter gallstone in the neck of the gallbladder Status post laparoscopic cholecystectomy done 12 of October Plan Continue postop surgical care Attempt to increase activity PT Ot Pain control IV fluid for hydration The above impression and plan of care have been discussed and directed by signing physician. Lois Flaherty nurse practitioner acting as scribe for signing physician.
--- NOTE | 2017-10-13 15:06 | P.PN ---
Subjective Progress Note Date: 10/13/17 Principal diagnosis: Fall Patient was sleepy this morning, she was able to wake up but went right back to sleep. She is still confused. Objective - Vital Signs Vital signs: Vital Signs Temp 96.8 F L 10/13/17 14:50 Pulse 68 10/13/17 14:50 Resp 16 10/13/17 14:50 BP 121/60 10/13/17 14:50 Pulse Ox 95 10/13/17 14:50 Intake & Output 10/12/17 10/13/17 10/13/17 18:59 06:59 18:59 Intake Total 650 Output Total 5 Balance 645 Weight 56.699 kg 56.699 kg Intake: IV 650 Output: Estimated Blood Loss 5 Other: Voiding Method Diaper Diaper Incontinent Incontinent # Voids 1 3 2 - Exam Constitutional: No acute distress, confused Eyes: Anicteric sclerae, moist conjunctiva, no lid-lag PERRLA ENMT: cranial nerves grossly intact Neck: Supple, Lungs: Clear to auscultation Normal respiratory effort, no accessory muscle use Cardiovascular: Heart regular in rate and rhythm, No murmurs, gallops, or rubs No peripheral edema Abdominal: Soft with some epigastric tenderness Skin: Normal temperature, tone, texture, turgor No induration No subcutaneous nodules No rash, lesions No ulcers Extremities: No digital cyanosis No clubbing Pedal pulses intact and symmetrical Radial pulses intact and symmetrical Normal gait and station No calf tenderness Psychiatric:Alert and oriented to person only not to place or date. Neuro: weakness - Labs CBC & Chem 7: 10/13/17 07:31 10/13/17 07:31 Labs: Abnormal Lab Results - Last 24 Hours (Table) 10/13/17 10/13/17 Range/Units 07:31 07:31 RBC 3.63 L (3.80-5.40) m/uL Hgb 11.0 L (11.4-16.0) gm/dL Hct 32.4 L (34.0-46.0) % Potassium 3.2 L (3.5-5.1) mmol/L Chloride 109 H (98-107) mmol/L BUN 3 L (7-17) mg/dL Total Protein 4.9 L (6.3-8.2) g/dL Albumin 2.4 L (3.5-5.0) g/dL Assessment and Plan Plan: #1 Change in mental status/Acute encephalopathy/Fall: Likely metabolic encephalopathy secondary to dehydration, severe anemia +/- cholecystitis. Underlying dementia is likely as well #2 Abdominal pain: Status post cholecystectomy per surgery, done on 10/12, management per surgery Computed tomography scan also showed a possible hematoma or mass in the urinary bladder, seen by urology who elected to do outpatient cystoscopy. #3 New onset anemia: Stool for occult blood was positive, EGD did not show any active bleeding discussed with surgery, colonoscopy to be done as an outpatient S/P 1 unit of packed red blood cells transfusion on 10/08 Anemia workup showed iron deficiency, started iron replacement #4 Hypothyroidism/anxiety: All stable, TSH within normal limits. Resume meds. #5 Weakness/deconditioning: Encourage ambulation PT and OT Expected date of discharge 2 days
[2017-10-13] MEDS: traMADol 50 MG TAB PO PRN (17:50)
[2017-10-13 18:34] LABS: Anion Gap 6 mmol/L; Blood Urea Nitrogen 5 mg/dL (7-17); Calcium 8.4 mg/dL (8.4-10.2); Carbon Dioxide 23 mmol/L (22-30); Chloride 110 mmol/L (98-107); Glucose 115 mg/dL (74-99); Potassium 3.5 mmol/L (3.5-5.1); Sodium 139 mmol/L (137-145)
[2017-10-14] MEDS: SODIUM CHLORIDE 0.9% 1,000 ML IV SCH ×2 (03:16→19:30)
[2017-10-14] MEDS: LEVOTHYROXINE 50 MCG TAB PO SCH (06:27)
[2017-10-14] MEDS: ALPRAZolam 0.25 MG TAB PO SCH (07:32)
[2017-10-14] MEDS: PARoxetine 20 MG TAB PO SCH (07:32)
[2017-10-14] MEDS: FERROUS SULFATE 325 MG TAB PO SCH ×3 (07:32→17:15)
[2017-10-14] MEDS: METOCLOPRAMIDE 10 MG TAB PO SCH ×2 (07:32→17:15)
[2017-10-14 09:00] LABS: Basophils % (A) 1 %; Eosinophils # (A) 0.2 k/uL (0-0.7); Eosinophils % (A) 2 %; HCT 31.8 % (34.0-46.0); HGB 10.6 gm/dL (11.4-16.0); Lymphocytes % (A) 16 %; MCH 29.7 pg (25.0-35.0); MCHC 33.3 g/dL (31.0-37.0); MCV 89.2 fL (80.0-100.0); Mean Platelet Volume 7.9; Monocytes # (A) 0.4 k/uL (0-1.0); Monocytes % (A) 6 %; Neutrophils # (A) 4.6 k/uL (1.3-7.7); Neutrophils % (A) 74 %; Platelet Count 368 k/uL (150-450); RBC 3.56 m/uL (3.80-5.40); RDW 14.8 % (11.5-15.5); WBC 6.2 k/uL (3.8-10.6)
[2017-10-14 09:13] LABS: ALT 35 U/L (9-52); AST 22 U/L (14-36); Albumin 2.4 g/dL (3.5-5.0); Alkaline Phosphatase 57 U/L (38-126); Anion Gap 8 mmol/L; Blood Urea Nitrogen 3 mg/dL (7-17); Calcium 8.4 mg/dL (8.4-10.2); Carbon Dioxide 23 mmol/L (22-30); Chloride 106 mmol/L (98-107); Glucose 100 mg/dL (74-99); Magnesium 1.7 mg/dL (1.6-2.3); Phosphorus 2.9 mg/dL (2.5-4.5); Potassium 3.4 mmol/L (3.5-5.1); Sodium 137 mmol/L (137-145); Total Bilirubin 0.2 mg/dL (0.2-1.3); Total Protein 4.9 g/dL (6.3-8.2)
--- NOTE | 2017-10-14 11:01 | P.PN ---
Subjective Progress Note Date: 10/14/17 Principal diagnosis: cholecystitis Patient did not have anything to eat today. RN mentions that family says patient is always sleeping.This is not new.Today patient more wake. Objective - Vital Signs Vital signs: Vital Signs Temp 99.1 F 10/14/17 06:34 Pulse 62 10/14/17 06:34 Resp 20 10/14/17 06:34 BP 128/65 10/14/17 06:34 Pulse Ox 95 10/14/17 06:34 Intake & Output 10/13/17 10/14/17 10/14/17 18:59 06:59 18:59 Intake Total 500 0 Balance 500 0 Weight 56.699 kg 56.699 kg Intake: Oral 500 0 Other: Voiding Method Diaper Diaper Diaper Incontinent Incontinent Incontinent # Voids 1 2 - Exam gen:alert and oriented lungs:clear to auscultation heart:s1s2 abdomen:soft and depressible,non tender ext:no edema - Labs CBC & Chem 7: 10/14/17 08:07 10/14/17 08:07 Labs: Abnormal Lab Results - Last 24 Hours (Table) 10/13/17 10/14/17 10/14/17 Range/Units 17:53 08:07 08:07 RBC 3.56 L (3.80-5.40) m/uL Hgb 10.6 L (11.4-16.0) gm/dL Hct 31.8 L (34.0-46.0) % Potassium 3.4 L (3.5-5.1) mmol/L Chloride 110 H (98-107) mmol/L BUN 5 L 3 L (7-17) mg/dL Creatinine 0.50 L 0.49 L (0.52-1.04) mg/dL Glucose 115 H 100 H (74-99) mg/dL Total Protein 4.9 L (6.3-8.2) g/dL Albumin 2.4 L (3.5-5.0) g/dL Assessment and Plan (1) Cholecystitis Narrative/Plan: s/p cholecystectomy on 10/12 Current Visit: Yes Status: Acute Code(s): K81.9 - CHOLECYSTITIS, UNSPECIFIED SNOMED Code(s): 92509464 (2) Altered mental state Narrative/Plan: improved pain meds only when necesary Current Visit: Yes Status: Acute Code(s): R41.82 - ALTERED MENTAL STATUS, UNSPECIFIED SNOMED Code(s): 152781915 (3) Rhabdomyolysis Narrative/Plan: resolved Current Visit: Yes Status: Acute Code(s): M62.82 - RHABDOMYOLYSIS SNOMED Code(s): 032423514 (4) Weakness Narrative/Plan: pt/ot Current Visit: Yes Status: Acute Code(s): R53.1 - WEAKNESS SNOMED Code(s) : 91318906 Plan: Plan for ecf. [place] on monday
[2017-10-14] MEDS: HYDROcodone/APAP 5-325MG 1 EACH TAB PO PRN (11:22)
--- NOTE | 2017-10-14 11:29 | P.PN ---
Subjective Progress Note Date: 10/14/17 Principal diagnosis: Cholecystitis Patient remains confused. Complaining of some pain in the left flank and hip region. Appetite is diminished. No vomiting. Objective - Vital Signs Vital signs: Vital Signs Temp 99.1 F 10/14/17 06:34 Pulse 62 10/14/17 06:34 Resp 20 10/14/17 06:34 BP 128/65 10/14/17 06:34 Pulse Ox 95 10/14/17 06:34 Intake & Output 10/13/17 10/14/17 10/14/17 18:59 06:59 18:59 Intake Total 500 0 Balance 500 0 Weight 56.699 kg 56.699 kg Intake: Oral 500 0 Other: Voiding Method Diaper Diaper Diaper Incontinent Incontinent Incontinent # Voids 1 2 2 - Exam Abdomen: Soft, nondistended, mild left flank tenderness - Labs CBC & Chem 7: 10/14/17 08:07 10/14/17 08:07 Labs: Abnormal Lab Results - Last 24 Hours (Table) 10/13/17 10/14/17 10/14/17 Range/Units 17:53 08:07 08:07 RBC 3.56 L (3.80-5.40) m/uL Hgb 10.6 L (11.4-16.0) gm/dL Hct 31.8 L (34.0-46.0) % Potassium 3.4 L (3.5-5.1) mmol/L Chloride 110 H (98-107) mmol/L BUN 5 L 3 L (7-17) mg/dL Creatinine 0.50 L 0.49 L (0.52-1.04) mg/dL Glucose 115 H 100 H (74-99) mg/dL Total Protein 4.9 L (6.3-8.2) g/dL Albumin 2.4 L (3.5-5.0) g/dL Assessment and Plan (1) Cholecystitis Narrative/Plan: Continue encouraging diet. PTOT. Monitor left-sided pain. Current Visit: Yes Status: Acute Code(s): K81.9 - CHOLECYSTITIS, UNSPECIFIED SNOMED Code(s): 62188849
[2017-10-15] MEDS: SODIUM CHLORIDE 0.9% 1,000 ML IV SCH ×3 (05:03→22:46)
[2017-10-15] MEDS: LEVOTHYROXINE 50 MCG TAB PO SCH (06:28)
[2017-10-15] MEDS: METOCLOPRAMIDE 10 MG TAB PO SCH ×2 (08:07→17:22)
[2017-10-15] MEDS: PARoxetine 20 MG TAB PO SCH (08:07)
[2017-10-15] MEDS: FERROUS SULFATE 325 MG TAB PO SCH ×3 (08:08→17:22)
[2017-10-15 09:33] LABS: ALT 31 U/L (9-52); AST 22 U/L (14-36); Albumin 2.4 g/dL (3.5-5.0); Alkaline Phosphatase 50 U/L (38-126); Anion Gap 7 mmol/L; Blood Urea Nitrogen 3 mg/dL (7-17); Calcium 8.9 mg/dL (8.4-10.2); Carbon Dioxide 23 mmol/L (22-30); Chloride 110 mmol/L (98-107); Glucose 85 mg/dL (74-99); Potassium 3.8 mmol/L (3.5-5.1); Sodium 140 mmol/L (137-145); Total Bilirubin 0.3 mg/dL (0.2-1.3)
[2017-10-15 09:34] LABS: Basophils % (A) 1 %; Eosinophils # (A) 0.2 k/uL (0-0.7); Eosinophils % (A) 3 %; HCT 32.5 % (34.0-46.0); HGB 10.6 gm/dL (11.4-16.0); Lymphocytes # (A) 1.3 k/uL (1.0-4.8); Lymphocytes % (A) 26 %; MCH 29.6 pg (25.0-35.0); MCHC 32.5 g/dL (31.0-37.0); Mean Platelet Volume 7.8; Monocytes # (A) 0.4 k/uL (0-1.0); Monocytes % (A) 7 %; Neutrophils # (A) 3.2 k/uL (1.3-7.7); Neutrophils % (A) 62 %; Platelet Count 371 k/uL (150-450); RBC 3.57 m/uL (3.80-5.40); RDW 14.8 % (11.5-15.5); WBC 5.1 k/uL (3.8-10.6)
[2017-10-15] MEDS: ALPRAZolam 0.25 MG TAB PO SCH (12:12)
--- NOTE | 2017-10-15 12:46 | P.PN ---
Subjective Progress Note Date: 10/15/17 Principal diagnosis: Cholecystitis Patient doing better today. Denies pain currently. Tolerated some of her breakfast. She is afebrile. Objective - Vital Signs Vital signs: Vital Signs Temp 97.1 F L 10/15/17 07:00 Pulse 58 L 10/15/17 07:00 Resp 20 10/15/17 07:00 BP 139/74 10/15/17 07:00 Pulse Ox 96 10/15/17 07:00 Intake & Output 10/14/17 10/15/17 10/15/17 18:59 06:59 18:59 Intake Total 0 250 120 Balance 0 250 120 Weight 56.699 kg 56.699 kg Intake: Oral 0 250 120 Other: Voiding Method Diaper Diaper Diaper Incontinent Incontinent Incontinent # Voids 2 1 - Exam Abdomen: Soft, nondistended, mild incisional tenderness, incisions clean and dry - Labs CBC & Chem 7: 10/15/17 09:01 10/15/17 09:01 Labs: Abnormal Lab Results - Last 24 Hours (Table) 10/15/17 10/15/17 Range/Units 09:01 09:01 RBC 3.57 L (3.80-5.40) m/uL Hgb 10.6 L (11.4-16.0) gm/dL Hct 32.5 L (34.0-46.0) % Chloride 110 H (98-107) mmol/L BUN 3 L (7-17) mg/dL Creatinine 0.49 L (0.52-1.04) mg/dL Total Protein 5.0 L (6.3-8.2) g/dL Albumin 2.4 L (3.5-5.0) g/dL Assessment and Plan (1) Cholecystitis Narrative/Plan: Continue PTOT. Continue encouraging diet. Current Visit: Yes Status: Acute Code(s): K81.9 - CHOLECYSTITIS, UNSPECIFIED SNOMED Code(s): 10726809
[2017-10-15] MEDS: HYDROcodone/APAP 5-325MG 1 EACH TAB PO PRN (20:32)
[2017-10-16 05:57] VITALS: BP 164/77; PULSE 56; RESP 16; TEMP 97.7
[2017-10-16] MEDS: LEVOTHYROXINE 50 MCG TAB PO SCH (06:32)
[2017-10-16 08:49] LABS: Basophils % (A) 1 %; Eosinophils # (A) 0.1 k/uL (0-0.7); Eosinophils % (A) 2 %; HCT 32.5 % (34.0-46.0); HGB 11.4 gm/dL (11.4-16.0); Lymphocytes # (A) 1.1 k/uL (1.0-4.8); Lymphocytes % (A) 20 %; MCH 30.9 pg (25.0-35.0); MCHC 35.3 g/dL (31.0-37.0); MCV 87.6 fL (80.0-100.0); Mean Platelet Volume 7.2; Monocytes # (A) 0.3 k/uL (0-1.0); Monocytes % (A) 6 %; Neutrophils # (A) 3.8 k/uL (1.3-7.7); Neutrophils % (A) 70 %; Platelet Count 432 k/uL (150-450); Poikilocytosis Slight; RDW 14.4 % (11.5-15.5); WBC 5.4 k/uL (3.8-10.6)
[2017-10-16 08:59] LABS: ALT 31 U/L (9-52); AST 18 U/L (14-36); Albumin 2.8 g/dL (3.5-5.0); Alkaline Phosphatase 62 U/L (38-126); Anion Gap 8 mmol/L; Blood Urea Nitrogen 3 mg/dL (7-17); Calcium 9.1 mg/dL (8.4-10.2); Carbon Dioxide 28 mmol/L (22-30); Chloride 103 mmol/L (98-107); Glucose 103 mg/dL (74-99); Potassium 3.3 mmol/L (3.5-5.1); Sodium 139 mmol/L (137-145); Total Bilirubin 0.3 mg/dL (0.2-1.3); Total Protein 5.5 g/dL (6.3-8.2)
[2017-10-16] MEDS: ALPRAZolam 0.25 MG TAB PO SCH (09:47)
[2017-10-16] MEDS: METOCLOPRAMIDE 10 MG TAB PO SCH (09:48)
[2017-10-16] MEDS: POTASSIUM CHLORIDE ER 20 MEQ TAB.ER PO SCH ×2 (09:48→14:23)
[2017-10-16] MEDS: PARoxetine 20 MG TAB PO SCH (09:48)
[2017-10-16] MEDS: FERROUS SULFATE 325 MG TAB PO SCH ×2 (09:48→14:23)
--- NOTE | 2017-10-16 10:56 | P.PN ---
Subjective Progress Note Date: 10/16/17 82-year-old female seen at bedside sitting up in bed increasingly more awake and alert this morning oriented to self and place. Potassium 3.3 this morning white count 5.4 hemoglobin 11.3 afebrile Postop October 12 laparoscopic cholecystectomy for chronic cholecystitis Postop October 10 EGD mild esophagitis, hiatal hernia, mild atrophic gastritis and mild duodenitis Objective - Vital Signs Vital signs: Vital Signs Temp 97.7 F 10/16/17 05:57 Pulse 56 L 10/16/17 05:57 Resp 16 10/16/17 05:57 BP 164/77 10/16/17 05:57 Pulse Ox 96 10/16/17 05:57 Intake & Output 10/15/17 10/16/17 10/16/17 18:59 06:59 18:59 Intake Total 240 800 Balance 240 800 Weight 56.699 kg Intake: Intake, IV Titration 800 Amount IV Fluid Continuation 1, 800 000 ml As IV .Wir3s ONE Rx#:[id number] Oral 240 Other: Voiding Method Diaper Diaper Incontinent Incontinent # Voids 2 1 # Bowel Movements 0 0 - Exam Physical exam Abdomen soft surgical dressing sites dry no facial grimacing with palpitation to abdominal wall nontender nondistended active bowel sounds no nausea no vomiting no stool - Labs CBC & Chem 7: 10/16/17 08:12 10/16/17 08:12 Labs: Abnormal Lab Results - Last 24 Hours (Table) 10/16/17 10/16/17 Range/Units 08:12 08:12 RBC 3.70 L (3.80-5.40) m/uL Hct 32.5 L (34.0-46.0) % Potassium 3.3 L (3.5-5.1) mmol/L BUN 3 L (7-17) mg/dL Creatinine 0.50 L (0.52-1.04) mg/dL Glucose 103 H (74-99) mg/dL Total Protein 5.5 L (6.3-8.2) g/dL Albumin 2.8 L (3.5-5.0) g/dL Assessment and Plan Assessment: Impression Present on admission epigastric abdominal pain status post EGD done on October 10 showed mild duodenitis, mild antral gastritis, hiatal hernia Underlying dementia suspected Stool for occult blood positive with an EGD showing no active bleeding Hypokalemia being corrected Ultrasound of the gallbladder done on October 07 showed cholelithiasis with a 1.2 centimeter gallstone in the neck of the gallbladder Status post laparoscopic cholecystectomy done 12 of October Plan Patient is felt to be surgically stable and appropriate to proceed with a transfer to ECF facility today Dose of potassium given today as ordered The above impression and plan of care have been discussed and directed by signing physician. Lois Flaherty nurse practitioner acting as scribe for signing physician.
--- NOTE | 2017-10-16 12:34 | P.DS ---
Providers Date of admission: 10/05/17 13:00 Expected date of discharge: 10/16/17 Attending physician: Patrice Kruse MD Consults: 10/06/17 15:04 Consult Physician Urgent Consulting Provider: Zaheer Bui Consult Reason/Comments: cholecystitis Do you want consulting provider notified?: Yes 10/06/17 15:06 Consult Physician Urgent Consulting Provider: Aaron Reid Consult Reason/Comments: hematoma in the bladder Do you want consulting provider notified?: Yes Primary care physician: Godfrey Pugh [facility] Course: 82-year-old female who presented to the emergency department because she was found down by her independent living staff. No further history was provided in the time of the admission. It was unclear how long the patient was down but it seemed like she fell. Initially I tried to reach her next of kin who is her son but was unable to. She was not able to give any history, when she was seen in the ER because of confusion. Physical exam at the time of the admission was significant for tachycardia with heart rate in the 110s. Patient did not have any fever or leukocytosis. Laboratory findings revealed anemia with hemoglobin 7.5, low bicarbonate at 18, high BUN 29, normal creatinine. Her total CK was slightly elevated consistent with mild rhabdomyolysis. 2 days after admission I was able to reach her son who told me that patient has been declining for the last several months, she has been getting more confused and weak. Over the last several years she has been having memory problems and was suspected to have dementia by her caring physician. Throughout the course of hospitalization patient continued to be confused to a varying degree. Clinically she was very dehydrated and she was treated with IV fluids. She tested positive for fecal occult blood and it was thought initially that she has some form of GI bleeding, iron profile was consistent with iron deficiency and because of that she was started on iron supplement. B12 and folic acid levels were both within normal limits. Dr. Franco from surgery did an EGD and that did not find any source of bleeding. Because of the low hemoglobin patient was transfused 1 units of blood. Throughout the hospitalization she did not have any evidence of bleeding, no hematemesis or hematochezia. No melena. From the beginning of the hospitalization patient was having abdominal pain, the pain was located in the upper part of the abdomen. Patient was not able to give specific history and details in regard to that pain because of significant confusion. She had a computed tomography scan of the abdomen that showed possible cholecystitis as well as possible hematoma or mass in the urinary bladder, patient was seen by urology who elected to do outpatient cystoscopy. She was treated with a short course of antibiotics for the suspected cholecystitis. A right upper quadrant ultrasound done and there was no cholecystitis signs seen on the ultrasound. Nevertheless surgery service elected to take out the gallbladder especially that patient continued to have abdominal pain. Throughout the hospitalization patient had problems with low potassium, she was treated with potassium supplementation multiple times. Today patient was cleared to go to rehabilitation by surgery, patient was seen by physical therapy service throughout the hospitalization, she'll be discharged to a rehabilitation facility for some physical therapy. She'll be following up with a urologist Dr. Reid as well as his surgeon Dr. Franco. She will also be following up with her primary care physician as soon as possible after discharge. Time for discharge 35 minutes. Patient Condition at Discharge: Fair Plan - Discharge Summary Discharge Rx Participant: No New Discharge Prescriptions: New Acetaminophen Tab [Tylenol] 650 mg PO Q6HR PRN tab PRN Reason: Mild Pain Or Fever > 100.5 Ferrous Sulfate [Iron (65 MG Elemental)] 325 mg PO TID-W/MEALS #90 tab HYDROcodone/APAP 5-325MG [[place] 5-325] 1 each PO Q12HR PRN tab PRN Reason: Pain Potassium Chloride ER [K-Dur 20] 20 meq PO DAILY #30 tab.er.prt Continue Levothyroxine Sodium [Synthroid] 50 mcg PO DAILY Aspirin EC [Ecotrin Low Dose] 81 mg PO DAILY@0800 PARoxetine [Paxil] 20 mg PO DAILY Metoclopramide [Reglan] 20 mg PO AC-BID Clobetasol Propionate [Temovate 0.05% Cream] 1 applic TOPICAL BID Sennosides [Senna] 17.2 mg PO HS Ondansetron [Zofran ODT] 4 mg PO Q8HR PRN PRN Reason: Nausea And Vomiting Magnesium Hydroxide [Milk of Magnesia] 2,400 mg PO HS PRN PRN Reason: Constipation Benzocain/Benzalkonm Oral Gel [Orajel Anesthetic Max Strength] 1 applic PO TID PRN PRN Reason: Pain Polyethylene Glycol 3350 [Miralax] 17 gm PO Q48H ALPRAZolam [Xanax] 0.125 mg PO DAILY@0800 Discontinued Docusate [Colace] 200 mg PO HS Sennosides [Senna] 8.6 mg PO HS PRN PRN Reason: Constipation Discharge Medication List Aspirin EC [Ecotrin Low Dose] 81 mg PO DAILY@0800 03/14/16 [History] Levothyroxine Sodium [Synthroid] 50 mcg PO DAILY 03/14/16 [History] Clobetasol Propionate [Temovate 0.05% Cream] 1 applic TOPICAL BID 07/08/17 [ History] Metoclopramide [Reglan] 20 mg PO AC-BID 07/08/17 [History] PARoxetine [Paxil] 20 mg PO DAILY 07/08/17 [History] Sennosides [Senna] 17.2 mg PO HS 07/08/17 [History] ALPRAZolam [Xanax] 0.125 mg PO DAILY@0800 10/05/17 [History] Benzocain/Benzalkonm Oral Gel [Orajel Anesthetic Max Strength] 1 applic PO TID PRN 10/05/17 [History] Magnesium Hydroxide [Milk of Magnesia] 2,400 mg PO HS PRN 10/05/17 [History] Ondansetron [Zofran ODT] 4 mg PO Q8HR PRN 10/05/17 [History] Polyethylene Glycol 3350 [Miralax] 17 gm PO Q48H 10/05/17 [History] Acetaminophen Tab [Tylenol] 650 mg PO Q6HR PRN tab 10/16/17 [Rx] Ferrous Sulfate [Iron (65 MG Elemental)] 325 mg PO TID-W/MEALS #90 tab 10/16/17 [Rx] HYDROcodone/APAP 5-325MG [[place] 5-325] 1 each PO Q12HR PRN tab 10/16/17 [Rx] Potassium Chloride ER [K-Dur 20] 20 meq PO DAILY #30 tab.er.prt 10/16/17 [Rx] Follow up Appointment(s)/Referral(s): Godfrey Bradley MD [Primary Care Provider] - 1-2 days Aaron Reid MD [STAFF PHYSICIAN] - 3 Weeks Zaheer Bui MD [STAFF PHYSICIAN] - 1 Week Patient Instructions/Handouts: Altered Mental Status (GEN) Activity/Diet/Wound Care/Special Instructions: F/U [address] Reid for office cystoscopy. No tub bath for six weeks. Shower daily. No lifting over 10 pounds for the next 6 weeks. May use ice packs to surgical site. .
[2017-10-16] MEDS: SODIUM CHLORIDE 0.9% 1,000 ML IV SCH (14:08)
== END 2017-10-16 15:46 | DRG 417 ==
LOC: EC 10:22 → 5MS5E 13:00 → 3SUR 17:51 → 4MS4W 10-09 14:50
PROVIDERS: ADMIT Internal Medicine; ATTEND Internal Medicine
PROC: 30233N1 Transfusion of Nonautologous Red Blood Cells into Peripheral Vein, Percutaneous Approach (ICD-10-PCS; principal; 2017-10-08)
PROC: 0DB98ZX Excision of Duodenum, Via Natural or Artificial Opening Endoscopic, Diagnostic (ICD-10-PCS; 2017-10-10)
PROC: 0DB68ZX Excision of Stomach, Via Natural or Artificial Opening Endoscopic, Diagnostic (ICD-10-PCS; 2017-10-10)
PROC: 0FT44ZZ Resection of Gallbladder, Percutaneous Endoscopic Approach (ICD-10-PCS; 2017-10-12)
DX: K80.10 Calculus of gallbladder with chronic cholecystitis without obstruction (principal); G93.41 Metabolic encephalopathy; E87.2 Acidosis; M62.82 Rhabdomyolysis; E86.0 Dehydration; E87.6 Hypokalemia; E03.9 Hypothyroidism, unspecified; K59.09 Other constipation; F41.9 Anxiety disorder, unspecified; K21.0 Gastro-esophageal reflux disease with esophagitis; K29.80 Duodenitis without bleeding; K29.40 Chronic atrophic gastritis without bleeding; R32 Unspecified urinary incontinence; R00.0 Tachycardia, unspecified; D50.9 Iron deficiency anemia, unspecified; R19.5 Other fecal abnormalities; F03.90 Unspecified dementia, unspecified severity, without behavioral disturbance, psychotic disturbance, mood disturbance, and anxiety; K44.9 Diaphragmatic hernia without obstruction or gangrene; K29.70 Gastritis, unspecified, without bleeding; Z79.899 Other long term (current) drug therapy; Z79.82 Long term (current) use of aspirin; Z91.018 Allergy to other foods
CPT/HCPCS: 36415; 43239; 70450; 70486; 71046; 72125; 72170; 74176; 76705; 80048; 80053; 81003; 82272; 82550; 82553; 82607; 82728; 82747; 83540; 83550; 83605; 83615; 83735; 84100; 84443; 84484; 85025; 85027; 85045; 85610; 85730; 86850; 86900; 86901; 86920; 87086; 87324; 88304; 88305; 93005; 96360; 96361; 96365; 96375; 99285